=== PATIENT | female | born 1955 | race Caucasian/White ===

== ENCOUNTER 2025-04-15 06:55 | Outpatient (OUT) | payer MEDICARE, OTHER, SELFPAY ==
--- OUTSIDE RECORDS SUMMARY | 2025-04-15 07:00 | XMS_ITS | Clinical Summary ---
Author Organization [facility] Address [address] [place] [address] Care Team Providers Care Ultrasound Supervisor Name Role Phone Efraín Nadir GALVEZ Primary Care Provider [phone] Allergies Active AllergyReactionsCriticalityNoted DateCommentsErythromycin Base09/15/2018 Other reaction(s): Anaphylaxis Molds & Smuts12/14/20032668SjxoixxaidtHpqjxdfoXlcs13/20/2020 Medications MedicationSigDispense QuantityRefillsLast FilledStart DateEnd DateStatus irbesartan 150 MG tablet Take 1 tablet by mouth daily.08/29/2019Active hydroCHLOROthiazide 12.5 MG tablet Take 12.5 mg by mouth daily.08/31/2019Active pantoprazole Sodium 40 MG Pack Take 1 packet by mouth daily every morning.08/30/2019Active Fexofenadine 180 MG tablet Take 1 tablet by mouth as needed.Active guaiFENesin 600 MG Tab SR 12 HR tablet SR Take 1 tablet by mouth as needed.Active Diclofenac Sodium 1 % Gel gel Place 1 Application on skin 4 times daily as needed. 2 to 4 grams to knee(s) up to 4 times a day 1 Tube 10/06/2019Active Additional Information Patient not taking.Reported on 02/03/2020 dicyclomine 20 MG tablet Take 1 tablet by mouth daily.Active Lactobacillus-Inulin (CULTUREE HEALTH & WELLNESS PO) Take by mouth daily.Active Hydrocortisone (MONISTAT SOOTHING CARE ITCH EX) Apply topically as needed.Active ferrous sulfate 325 (65 Fe) MG tablet Take 325 mg by mouth 2 times daily. OTCActive aspirin EC [address] Take 1 table twice a day for 30days. This medication is for blood clot prevention. 60 tablet 02/28/2020Active celecoxib 200 MG capsule Take 1 capsule by mouth 2 times daily. 84 capsule 02/28/2020Active docusate 100 MG capsule Take 1 capsule by mouth 2 times daily. 60 capsule 02/28/2020Active Additional Information Patient not taking.Reported on 03/23/2020 therapeutic multivitamin-minerals tablet Take 1 tablet by mouth at bedtime. 30 tablet 02/28/2020Active oxyCODONE 5 MG tablet Indications:Acute postoperative pain of right kneeTake 1-2 tabs po q 4-6 hours PRN pain. Wean as tolerated. 30 tablet 02/28/2020Active ondansetron 4 MG tablet Take 1 tablet by mouth every 8 hours as needed for Nausea. 6 tablet 02/28/2020Active acetaminophen 325 MG tablet Take 2 tablets by mouth every 4 hours as needed for Mild Pain. 50 tablet Active Active Problems No known active problems Social History Tobacco UseTypesPacks/DayYears UsedDateSmoking Tobacco: NeverSmokeless Tobacco: Never Tobacco Cessation:Counseling Given: Not Answered Alcohol UseStandard Drinks/WeekCommentsYes0 (1 standard drink = 0.6 oz pure alcohol)very ocassionalCommentsNoSex and Gender InformationValueDate RecordedSex Assigned at BirthNot on fileLegal BaxLdqbjp74/13/2020 3:36 PM EDT Gender IdentityNot on fileSexual OrientationNot on file Last Filed Vital Signs Vital SignReadingTime TakenCommentsBlood Tlwzbwrp218/7410 3:29 PM EDT Ifywp5230 3:29 PM UXYIkiauibnymk50.9 ??C (96.6 ??F)08/07/2022 9:24 AM EDTRespiratory Efyy6360 3:29 PM EDTOxygen Wmhdvnptsm44%02/28/2020 3:29 PM EDTInhaled Oxygen Concentration--Hjblpx45 kg (205 lb)08/07/2022 9:24 AM EDT Qivsyd900 cm (5' 3 )08/07/2022 9:24 AM EDTBody Mass Index36.31008/07/2022 9:24 AM EDT Plan of Treatment Health MaintenanceDue DateLast DoneCommentsDEXA SCAN CULLVQJGTJ51/15/1956 HEPATITIS C VIRUS HSFWIBWFQ10/15/0400ODEUKFA87/15/1956TDAP (ADULT)1972 CERVICAL CANCER SCREENING DPTUFYLCSM75/15/1975LIPID ZNKKIEPST73/15/1994MAMMOGRAM SCREENING HIEVDFPTIO64/15/1994COLORECTAL CANCER SCREENING FDDPKGAMXU08/15/1999 ZOSTER (SHINGLES) VACCINE (1 of 2)07/03/20036449YXMBTYXXT21, 12/16/2019COVID-19 VACCINE ( season)/09/2021, 02/18/2021, 07/21/2020, Additional history existsINFLUENZA VACCINE (#1)/, 03/26/2021, 03/26/2020, Additional history existsRSV VACCINE (1 - 1-dose 75+ series)2028PNEUMOCOCCAL VACCINE RPORJSOuagsclkk51/08/2020, 03/18/2019HEP B VACCINEAged OutNo longer eligible based on patient's age to complete this topic Medical Devices ImplantedTypeAreaManufacturerDevice IdentifierShelf Expiration DateModel / Serial / LotAttune Tibial Base Porocoat Rotating Platform Size 5 Cementless Implanted:Qty: 1 on 02/28/2020 by Magnus Gibbons MD at [facility] Right: KneeDEPUY ORTHOPAEDICS INC10/16/2028/ 1506-11-005 / [id number] Femoral Porocoat Cruciate Retaining Size 6 Right Cementless Implanted:Qty: 1 on 02/28/2020 by Magnus Gibbons MD at [facility] Right: KneeDEPUY ORTHOPAEDICS INC04/17/2029/ 1504-01-206 / [id number] Tibial Insert Rotating Platform Crucite Retaining Size 6 5mm Aox Implanted:Qty: 1 on 02/28/2020 by Magnus Gibbons MD at [facility] Right: KneeDEPUY ORTHOPAED[employer]06/18/2024/ 1516-30-605 / [id number] Tibial Base Porocoat Rotating Platform Implanted:Qty: 1 on [facility]/11/[facility] [id number] / / [id number] Femoral Porocoat Cruciate Retaining Implanted:Qty: 1 on 01/11/2020 by Magnus Gibbons MD at [facility]: Knee [id number] / / [id number] Tibial Insert Rotating Platform Cruciate Retaining Implanted:Qty: 1 on 01/11/2020 by Magnus Gibbons MD at [facility]: Knee [id number] / / [id number] Procedures Procedure NamePriorityDate/TimeAssociated DiagnosisCommentsCOMPREHENSIVE METABOLIC MLGGRVggwpeq32/17/2020 3:57 PM EDT Arthralgia, unspecified joint from Last 3 Months or Most Recently Relevant to Health Maintenance Results * (ABNORMAL) COMPREHENSIVE METABOLIC PANEL (02/03/2020 3:57 PM EDT)Component ValueRef RangeTest MethodAnalysis TimePerformed AtPathologist SignatureGlucose 104(H)70 - 100 MG/DL[address] Comment: NORMAL <100 mg/dL PREDIABETES 101-126 mg/dL DIABETES 126 mg/dL or higher ZYW421 - 20 MG/DL[address] CREATININE SERUM0.980.52 - 1.04 MG/DL[address]SODIUM141136 - 145 MMOL/[address]Potassium4.03.5 - 5.1 MMOL/[address]CHLORIDE10598 - 107 MMOL/[address]CALCIUM9.68.4 - 10.2 MG/DL[address]PROTEIN, TOTAL7.46.3 - 8.2 GM/DL[address]Albumin4.23.5 - 5.0 G/dl02 [address]BILIRUBIN, TOTAL0.50.2 - 1.2 MG/DL[address]AST1715 - 41 IU/[address]ALKAL[address] DTAMVRVGLHG466(H)38 - 126 IU/[address]BON DIOXIDE (CO2)2622 - 30 MMOL/[address]/G Ratio1.31.3 - 2.[address] QTB3579 - 54 IU/[address] ESTIMATED GFR, NON AMER>60ml/min/1.73sq.[address]ESTIMATED GFR, >60ml/min/1.73sq.m [address]GFR COMMENTAverage GFR for 60-69 years old = 85.[address]Comment: Chronic Kidney disease, GFR = <60. Kidney failure, GFR = <15. The GFR estimate is not adjusted for extreme body surface area or acute process, nor has it been validated for women or ethnic groups other than and . Specimen (Source)Anatomical Location / LateralityCollection Method / Volume Collection TimeReceived UlqhRnqbb53/17/2020 3:57 PM EDT02/03/2020 4:06 PM EDT Narrative Authorizing ProviderResult TypeResult StatusChad Shakila BARRERA-CNPCHEMISTRY ORDERABLESFinal ResultPerforming OrganizationAddressCity/State/ZIP CodePhone Number [address] [address] from Last 3 Months or Most Recently Relevant to Health Maintenance Insurance Advance Directives For more information, please contact: [phone] (7:30 AM - 6PM [facility], Friday-Friday) * Full Code (Latest Code Status on File) Date ActivatedDate WemqjbmfnxwWfkzmbfv54/12/2020 9:06 AM * Full Code Date ActivatedDate InactivatedComments01/11/2020 11:18 AM02/28/2020 9:06 AM Care Teams Team MemberRelationshipSpecialtyStart DateEnd Date Nadir Kenny DO [address] [address] PCP - GeneralFamily Medicine10/06/19
--- OUTSIDE RECORDS SUMMARY | 2025-04-15 07:00 | XMS_ITS | Clinical Summary ---
Author Organization [facility] Address [address] [place] [address], [address] [place] [address] Care Team Providers Care Customer Liaison Name Role Phone Unavailable Primary Care Provider Unavailabl e Social History Tobacco UseTypesPacks/DayYears UsedDateSmoking Tobacco: Never Assessed CommentsUnknownSex and Gender InformationValueDate RecordedSex Assigned at Not on fileLegal TxxZeuknj36/12/2013 4:00 AM ESTGender IdentityNot on fileSexual OrientationNot on file Plan of Treatment Not on file
--- OUTSIDE RECORDS SUMMARY | 2025-04-15 07:00 | XMS_ITS | Clinical Summary ---
Author Organization [facility] Address [address] [place] [address] Phone Care Team Providers Care Firmware Engineer Name Role Phone Unavailable Primary Care Provider Unavailabl e Social History Tobacco UseTypesPacks/DayYears UsedDateSmoking Tobacco: Never Assessed CommentsUnknownSex and Gender InformationValueDate RecordedSex Assigned at Not on fileLegal FerFihovu41/25/2022 11:20 PM ESTGender IdentityNot on file Sexual OrientationNot on file Plan of Treatment Not on file
--- OUTSIDE RECORDS SUMMARY | 2025-04-15 07:00 | XMS_ITS | Clinical Summary ---
Author Organization [facility] Address [address] [place] [address] Care Team Providers Care Oil Refinery Process Technician Name Role Phone Nadir Kenny DO Unavailable [phone] Nadir Kenny DO Primary Care Provider [phone] Allergies Active AllergyReactionsCriticalityNoted DateCommentsDoxycyclineHives,Swelling, RwtszgrOyfq76/20/2020Erythromycin FsndRttkhwbzlvnHoaj19/30/2019 Other reaction(s): Anaphylaxis Molds & Smuts12/14/2003 Other Reaction(s): Other: See Comments Medications MedicationSigDispense QuantityRefillsLast FilledStart DateEnd DateStatus fluticasone (Flonase Allergy Relief) 50 MCG/ACT nasal spray Administer 1 spray into each nostril in the morning.Active sucralfate (Carafate) 1 g tablet Take 1 g by mouth in the morning and 1 g at noon and 1 g in the evening. 08/08/2023ctive hyoscyamine (Levsin) 0.[address] 0.125 mg under the tongue every 4 (four) hours if njeijc2008/08/2023ctive irbesartan (Avapro) 300 MG tablet Indications:Essential hypertensiontake 1 tablet orally once daily 90 tablet 5Active pantoprazole (ProtoNix) 40 MG EC tablet Take 40 mg by mouth in the morning. Take before meals. Do not crush, chew, or split.Active Lidocaine 4 % patch Apply 1 patch topically Daily as needed (pain)Active escitalopram (Lexapro) 5 MG tablet Indications:AnxietyTake 1 tablet (5 mg) by mouth Daily 30 tablet 508/25/2025Active rosuvastatin (Crestor) 5 MG tablet Indications:Mixed hyperlipidemia1 tablet po each evening 30 tablet 5Active fexofenadine (Rosie) 180 MG tablet Take 180 mg by mouth DailyActive Active Problems ProblemNoted DateDiagnosed DateElevated blood pressure qwjemzr3401/05/2025 Radiculopathy affecting upper icgcsxlua56/20/2025Sciatica of right side 11/10/2024bnormal resting ECG inqblyok29/07/2024iastolic heart failure 02/23/2024Elevated troponin I level02/23/2024Lower abdominal pain02/23/2024enal cyst02/23/2024Unstable uslttr3602/23/20243198Dnqxefe58/24/2024lass 2 obesity 06/11/2023Gout06/11/2023Morbid zbuhyeu8906/11/2023Neuroma of second interspace of left foot06/11/2023Osteoarthritis of knee06/11/2023Solitary pulmonary nodule 06/11/2023Tinnitus of both ears06/11/2023PPV (benign paroxysmal positional vertigo), left05/06/2023ersistent postural-perceptual dstievqpk40/30/2023 Migraine with aura and without status migrainosus, not orjfkrypypm86/30/2023 Balance uvfvwxrt82/28/4976Szdjihcuysn46/28/2023Obesity, Class II, BMI 35-39.9 04/01/2023hest pain03/31/2023Essential bozexluezhrn37/13/2023ERD (gastroesophageal reflux disease)03/31/20238905Ocudgrawuuzbvm48/13/2023IBS (irritable bowel syndrome)03/31/2023Stage 3a chronic kidney sjqyxwh3603/31/2023 Age-related nuclear cataract of both eyes11/22/2022ry eyes11/22/2022mblyopia of right eye11/22/2022lepharitis of upper and lower eyelids of both eyes 11/22/2022Other voice and resonance kgqtpunht53/22/2005 Encounters DateTypeDepartmentCare EdcjPdwihkptxkb91/20/2025 9:20 AM EDTOffice Visit [facility] [address] [place] [phone] Nadir Kenny DO Mixed hyperlipidemia (Primary Dx); Essential hypertension; Irritable bowel syndrome with both constipation and diarrhea; Pre-diabetes; Xlsmdtw8103/07/2025 9:00 AM EDTOffice Visit [facility] [address] [place] [phone] Tr Sibley, [place] Routine general medical examination at health care facility (Primary Dx); Encounter for screening mammogram for malignant neoplasm of breast; Postmenopausal; Encounter for /20/2025amboo flowsheet [facility] [address] [place] [phone] Tr [place], [place] 03/07/20257234Iiwhdr13/29/2025Patient Outreach [facility] [address] [place] [address] Renaldo, Inna, CABLE SYSTEMS INSTALLER from Last 3 Months Immunizations ImmunizationAdministration DatesNext DueInfluenza, Injectable, MDCK, preservative free03/18/2019Influenza, Madin [place] Canine Kidney, subunit, trivalent, injectable, contains annvzbjhwcuf10/08/2024Influenza, Seasonal, Quadrivalent, Gjvrvekbct41/10/2023,03/15/2022,03/26/2021,03/26/2020Influenza, injectable, MDCK, preservative free, ptmnzewiaxxw46/15/2018Influenza, injectable, quadrivalent, preservative free04/02/2021,03/03/2018,03/25/2017 Pneumococcal Conjugate PCV Pneumococcal Conjugate PCV Pneumococcal Polysaccharide CLTH327105/26/2019 Family History Medical HistoryRelationNameCommentsCancerBrother 2CraigMultiple sclerosisFather CancerMotherDorothyCataractsMotherDorothyHeart diseaseMotherDorothyCancerSister SueDiabetesSisterSueRelationNameStatusCommentsBrother 1DeceasedBrother 2Craig FatherDeceasedMotherDorothySisterSue Social History Tobacco UseTypesPacks/DayYears UsedDateSmoking Tobacco: NeverPassive Smoke Exposure: NeverSmokeless Tobacco: Never Tobacco Cessation:Counseling Given: No Alcohol UseStandard Drinks/WeekCommentsNever0 (1 standard drink = 0.6 oz pure alcohol)Humiliation, Afraid, Rape, and Kick questionnaireAnswerDate Recorded Within the last year, have you been afraid of your partner or ex-partner?No 04/14/2023Within the last year, have you been humiliated or emotionally abused in other ways by your partner or ex-partner?No04/14/2023Within the last year, have you been kicked, hit, slapped, or otherwise physically hurt by your partner or ex-partner?No04/14/2023Within the last year, have you been raped or forced to have any kind of sexual activity by your partner or ex-partner?No04/14/2023 Social Connection and Isolation PanelAnswerDate RecordedIn a typical week, how many times do you talk on the phone with family, friends, or neighbors?More than three times a week04/14/2023How often do you get together with friends or relatives?Twice a week04/14/2023How often do you attend episcopal or judaism services?More than 4 times per year04/14/2023o you belong to any clubs or organizations such as episcopal groups, unions, fraternal or athletic groups, or school groups?Yes04/14/2023How often do you attend meetings of the clubs or organizations you belong to?More than 4 times per year04/14/2023re you , , , , never , or living with a partner? 04/14/2023UDIT-CAnswerDate RecordedQ1: How often do you have a drink containing alcohol?Never04/14/2023Q2: How many drinks containing alcohol do you have on a typical day when you are drinking?Patient does not drink04/14/2023Q3: How often do you have six or more drinks on one occasion?Never04/14/2023Overall Financial Resource Strain (CARDIA)AnswerDate RecordedHow hard is it for you to pay for the very basics like food, housing, medical care, and heating?Not very hard 04/14/2023HQ-2AnswerDate RecordedPatient Health Questionnaire-2 Score0 03/07/2025[facility] [place] [facility] - Occupational Stress QuestionnaireAnswerDate RecordedDo you feel stress - tense, restless, nervous, or anxious, or unable to sleep at night because yourmind is troubled all the time - these days?Only a ccindo4804/14/2023Exercise Vital SignAnswerDate Recorded On average, how many days per week do you engage in moderate to strenuous exercise (like a brisk walk)?2 days04/14/2023On average, how many minutes do you engage in exercise at this level?20 min04/14/2023Hunger Vital SignAnswerDate RecordedWithin the past 12 months, you worried that your food would run out before you got the money to buymore.Never true04/14/2023Within the past 12 months, the food you bought just didn't last and you didn't have money to get more.Never true04/14/2023RAPARE - TransportationAnswerDate RecordedIn the past 12 months, has lack of transportation kept you from medical appointments or from getting medications?No04/14/2023In the past 12 months, has lack of transportation kept you from meetings, work, or from getting things needed for daily living?No04/14/2023Housing Stability Vital SignAnswerDate RecordedIn the last 12 months, was there a time when you were not able to pay the mortgage or rent on time?No04/14/2023In the last 12 months, how many places have you lived?1 04/14/2023In the last 12 months, was there a time when you did not have a steady place to sleep or slept in [facility] (including now)?No04/14/2023Comments UnknownSex and Gender InformationValueDate RecordedSex Assigned at BirthNot on fileLegal JeuXrurkm60/01/2023 8:35 PM EDTGender IdentityNot on fileSexual OrientationNot on file Last Filed Vital Signs Vital SignReadingTime TakenCommentsBlood Jgomrtey959/7610 9:04 AM EDT Dljhq402003/07/2025 9:04 AM LQYTjgenhmjumh25.7 ??C (98.1 ??F)03/07/2025 9:04 AM EDTRespiratory Rate--Oxygen Wflavfhvns00%03/07/2025 9:04 AM EDTInhaled Oxygen Concentration--Immmjf520 kg (224 lb)03/07/2025 9:04 AM SMLOgouap481 cm (5' 3 ) 03/07/2025 9:04 AM EDTBody Mass Index39.6803/07/2025 9:04 AM EDT Plan of Treatment Health MaintenanceDue DateLast DoneCommentsCT Sainyudcsosu45/15/1956FIT-DNA 1955FIT1955FOBT1955 6792Xblmnfgcxkkgo67/15/0939Quddbqeff66/16/2022 02/01/2021, 08/26/2013, 08/26/2013, Additional history existsCOVID-19 Vaccine ( season)5002/13/2024, 02/25/2023, 02/18/2021, Additional history existsInfluenza Vaccine (#1)/12/2023, 02/25/2023, 03/15/2022, Additional history kywqsgHnjperwmpbp63, 08/17/2013, 08/17/2013Colorectal Cancer Czzdcjlsp65/29/2030Pneumococcal Vaccine: 65+ KnzxaHquirirwd92/20/2025, 03/26/2020, 03/18/2019 Procedures Procedure NamePriorityDate/TimeAssociated DiagnosisCommentsHEMOGLOBIN A1C WITH ZTYWpiigaj54/14/2025 9:15 AM EDT Pre-diabetes LIPID IGCLBFzaitjv25/14/2025 9:15 AM EDT General medical exam COMPREHENSIVE METABOLIC IIKUMQqirwxl65/14/2025 9:15 AM EDT General medical exam CBC (INCLUDES DIFF/PLT)Xsoezrc8403/01/2025 9:15 AM EDT General medical exam BI MAMMOGRAM SCREENING QQSSRMYXXCbiuzus16/16/2021 12:00 PM EDT HM ESZOHFGKRXZBoefrkw98/29/2020 1:09 PM EDTfrom Last 3 Months or Most Recently Relevant to Health Maintenance Results * Hemoglobin a1c with eag (03/01/2025 9:15 AM EDT)ComponentValueRef RangeTest MethodAnalysis TimePerformed AtPathologist SyjunygwnNsjW5P9.34.8 - 5.6 % [facility]ABCORPComment: ? Prediabetes: 5.7 - 6.4 Diabetes: >6.4 Glycemic control for adults with diabetes: <7.0 Est Avg Gluc yLZ213im/dLLABCORPSpecimen (Source)Anatomical Location / Laterality Collection Method / VolumeCollection TimeReceived TimeBloodVenous blood specimen / Ncootbw1203/01/2025 9:15 AM EDT1 Narrative [facility] - 03/02/2025 9:07 AM EDT Performed at: 02 - [facility] ??[id number] Welder Assistant: Chito Palacios PhD, Phone: ??[phone] Authorizing ProviderResult TypeResult StatusPaehsan Kenny DOL BLOOD ORDERABLES Final ResultPerforming OrganizationAddressCity/State/ZIP CodePhone Number [facility] * CBC and differential (03/01/2025 9:15 AM EDT)ComponentValueRef RangeTest MethodAnalysis TimePerformed AtPathologist SignatureWBC5.73.4 - 10.8 x10E3/uL LABCORPRBC4.383.77 - 5.28 x10E6/pKCTQCXWUMdh88.711.1 - 15.9 g/bHAXASGTEFzm82.3 34.0 - 46.6 %CLRVVHASSS6297 - 97 hWEUABRQBNSA74.026.6 - 33.0 ejAOWLFCGLMYH23.3 31.5 - 35.7 g/vMFSOIUKXNDE20.211.7 - 15.4 %WBTXUIFRdssjtrnl311809 - 450 x10E3/wVJVYHMRCWouvcvrazwx36Wrz Estab. %LXMMNEYLwmgow37Iit Estab. %[facility] Xnueteuzr56Ert Estab. %YCPEILHUvr5Jht Estab. %VASGRVETikyd0Gls Estab. %[facility] Neutrophils Abs3.11.4 - 7.0 x10E3/uLLABCORPLymphs Abs1.90.7 - 3.1 x10E3/uL [facility]ABCORPMonocytesAbs0.60.1 - 0.9 x10E3/uLLABCORPEos Abs0.10.0 - 0.4 x10E3/uL [facility]ABC[facility]PBaso Abs0.10.0 - 0.2 x10E3/uLLABCORPImmature Cjsrnvzwoevf2Xes Estab. % LABCORPImmature Grans Abs0.00.0 - 0.1 x10E3/uLLABCORPSpecimen (Source) Anatomical Location / LateralityCollection Method / VolumeCollection Time Received TimeBloodVenous blood specimen / Xsloqrl2603/01/2025 9:15 AM EDT 03/01/2025 Narrative [facility] - 03/02/2025 9:07 AM EDT Performed at: 01 - [place] [address] [facility], [address], [place], [place] ??[id number] Welder Assistant: Ryder Major MD, Phone: ??[phone] Authorizing ProviderResult TypeResult StatusPaul Domenic Kenny DOL BLOOD ORDERABLES Final ResultPerforming OrganizationAddressCity/State/ZIP CodePhone Number [facility] * Lipid panel (03/01/2025 9:15 AM EDT)ComponentValueRef RangeTest MethodAnalysis TimePerformed AtPathologist SignatureCholesterol, Btqzd145512 - 199 mg/dL HBOTSGIHqhtvbxyitbua6587 - 149 mg/dLLABCORPHDL Puqbulfoozu98>39 mg/dLLABCORP VLDL Cholesterol Cso886 - 40 mg/dLLABCORPLDL Chol Calc (NIH)900 - 99 mg/dL [facility]PSpecimen (Source)Anatomical Location / LateralityCollection Method / VolumeCollection TimeReceived TimeBloodVenous blood specimen / Unknown 03/01/2025 9:15 AM EDT1 Narrative [facility] - 03/02/2025 9:07 AM EDT Performed at: 02 - [facility], [place], [place] ??[id number] Welder Assistant: Chito Palacios PhD, Phone: ??[phone] Authorizing ProviderResult TypeResult StatusPaul Domenic Vazquezer FELIPE BLOOD ORDERABLES Final ResultPerforming OrganizationAddressCity/State/ZIP CodePhone Number [facility] * (ABNORMAL) Comprehensive metabolic panel (03/01/2025 9:15 AM EDT)Component ValueRef RangeTest MethodAnalysis TimePerformed AtPathologist SignatureGlucose 9670 - 99 mg/xYXAWYUUFAND419 - 27 mg/dLLABCORPCreat1.33(H)0.57 - 1.00 mg/dL FGBKAQXBRWO18(L)>59 mL/min/1.73LABCORPBUN/Creat Tkuyr7315 - 67NJTHWKJRfkeeu683 134 - 144 mmol/[facility]ABCORPPotassium4.23.5 - 5.2 mmol/NIQKCCVXMcpmnzlt192(H)96 - 106 mmol/[facility]ABCORPCarbon Dervqpn4990 - 29 mmol/[facility]ABCORPCalcium9.78.7 - 10.3 mg/dLLABCORPProtein Total6.76.0 - 8.5 g/dLLABCORPAlbumin4.33.8 - 4.8 g/dL [facility]PGlobulin Total2.41.5 - 4.5 g/dLLABCORPBili Total0.80.0 - 1.2 mg/dL [facility]ABCORPAlk Eybzvxpdcvi97149 - 135 IU/TTUBWELOXIS3688 - 59 IU/RBHXBJTQACB372 - 35 IU/[facility]PSpecimen (Source)Anatomical Location / LateralityCollection Method / VolumeCollection TimeReceived TimeBloodVenous blood specimen / Caqlvtk1503/01/2025 9:15 AM EDT1 Narrative [facility] - 03/02/2025 9:07 AM EDT Performed at: 01 - [facility] [address], [place], [place] ??[id number] Welder Assistant: Ryder Major MD, Phone: ??[phone] Authorizing ProviderResult TypeResult StatusPaul J Efraín DOLAB BLOOD ORDERABLES Final ResultPerforming OrganizationAddressCity/State/ZIP CodePhone Number [facility] * Bilateral screening mammogram (02/01/2021 12:00 PM EDT)Anatomical Region LateralityModalityBreastBilateralMammographySpecimen (Source)Anatomical Location / LateralityCollection Method / VolumeCollection TimeReceived Time Narrative 02/01/2021 12:00 PM EDT PERFORMED AT [facility] LOCATION:[id number] Procedure Note CONVERSION, GENERIC - 11/22/2022 PERFORMED AT [facility] LOCATION:[id number] Authorizing ProviderResult TypeResult Sara Kenny DOIMG BI PROCEDURES Final Result * Hm Colonoscopy (12/15/2019 1:09 PM EDT)Anatomical RegionLateralityModality Other Narrative Authorizing ProviderResult TypeResult Sara Kenny DOHEALTH MAINTENANCE Final Result from Last 3 Months or Most Recently Relevant to Health Maintenance Insurance Care Teams Team MemberRelationshipSpecialtyStart DateEnd Nadir Kenny DO [address] [place] [address] PCP - [facility]10/10/22 Nadir Kenny, DO [address] [place] [address] PCP - [facility]09/24/22
--- OUTSIDE RECORDS SUMMARY | 2025-04-15 07:00 | XMS_ITS | Clinical Summary ---
Author Organization [facility] Address [address] [place] [address] Care Team Providers Care Public Address Servicer Name Role Phone Nadir Kenny DO Primary Care Provider [phone] Allergies Active AllergyReactionsCriticalityNoted DateCommentsDoxycyclineSwellingHigh 10/06/2019Erythromycin UsfrSqpsonixshj05/30/2019 Other reaction(s): Anaphylaxis Other reaction(s): Anaphylaxis MoldOther: See Aognzdzd76/28/5586Dwipzfmlhunoh73/28/2004 Medications MedicationSigDispense QuantityRefillsLast FilledStart DateEnd DateStatus multivitamin,ew-fxwn-szefrcan (THERAGRAN M) tab Take 1 tablet by mouth daily at bedtime.02/28/2020Active irbesartan (AVAPRO) 300 mg tablet Take 300 mg by mouth daily at bedtime.03/15/2023ctive fexofenadine (BERNY) 180 mg tablet Take 1 tablet by mouth as needed.Active LACTOBACILLUS ACIDOPHILUS ORAL Take 1 tablet by mouth once daily.Active fluticasone propionate (FLONASE NASAL) Use 2 Sprays in the nose as needed.Active pantoprazole DR (PROTONIX) 40 mg tablet Take 1 tablet by mouth once daily. 90 tablet ctive sucralfate (CARAFATE) 1 gram tablet Take 1 tablet by mouth three times a day. 90 tablet 5Active Active Problems ProblemNoted DateDiagnosed DateObesity, Class II, BMI 35-39.91/hest pain03/31/2023ERD (gastroesophageal reflux disease)03/31/2023HTN (hypertension) 03/31/2023HLD (hyperlipidemia)03/31/2023IBS (irritable bowel syndrome)03/31/2023 Stage 3a chronic kidney lrbzrmt7403/31/2023Other voice and resonance disorders 08/07/2004 Resolved Problems ProblemNoted DateDiagnosed DateResolved DateMorbid vcqvddu54/ Immunizations ImmunizationAdministration DatesNext Dueinfluenza (IIV4) vaccine, age 6 mo - 64 yr, quadrivalent, PF (AFLURIA, FLUARIX, FLULAVAL, FLUZONE)03/25/2017influenza (aIIV4) vaccine, age 65+ yr, quadrivalent, PF (FLUAD QUAD)02/25/2023,03/15/2022, 03/26/2021,03/26/2020influenza (ccIIV3) vaccine, age 6+ mo, trivalent, PF (FLUCELVAX)03/18/2019influenza (ccIIV4) vaccine, age 6+ mo, quadrivalent, PF (FLUCELVAX)03/02/2018pneumococcal conjugate (PCV13) vaccine, 13 valent (PREVNAR 13)03/18/2019pneumococcal polysaccharide (PPV23) vaccine, 23 valent (PNEUMOVAX 23)03/26/2020 Family History Medical HistoryRelationCommentsHeart AttackBrotherRelationStatusCommentsBrother Social History Tobacco UseTypesPacks/DayYears UsedDateSmoking Tobacco: NeverSmokeless Tobacco: Never Tobacco Cessation:Counseling Given: Not Answered Alcohol UseStandard Drinks/WeekCommentsNot Currently0 (1 standard drink = 0.6 oz pure alcohol)sociallyHunger Vital SignAnswerDate RecordedWithin the past 12 months, you worried that your food would run out before you got the money to buy more.Never true03/31/2023Within the past 12 months, the food you bought just didn't last and you didn't have money to get more.Never true03/31/2023RAPARE - TransportationAnswerDate RecordedIn the past 12 months, has lack of transportation kept you from medical appointments or from getting medications?No 03/31/2023In the past 12 months, has lack of transportation kept you from meetings, work, or from getting things needed for daily living?No03/31/2023 Housing Stability Vital SignAnswerDate RecordedIn the last 12 months, was there a time when you were not able to pay the mortgage or rent on time?No03/31/2023 Number of Places Lived in the Last YearNot on file03/31/2023In the last 12 months, was there a time when you did not have a steady place to sleep or slept in [facility] (including now)?No03/31/2023Housing Stability Vital SignAnswerDate RecordedIn the last 12 months, was there a time when you were not able to pay the mortgage or rent on time?No03/31/2023Number of Times Moved in the Last Year Not on file03/31/2023Homeless in the Last YearNot on file03/31/2023rea Deprivation IndexAnswerDate RecordedNational Score (1-100), lower number is lower fcxw910404/30/2024State Score (1-10), lower number is lower rhip12407/01/2023 Data from: https://www.neighborhoodatlas.medicine.[facility].edu/. Last address used for [address]CommentsNoSex and Gender InformationValueDate RecordedSex Assigned at BirthNot on fileLegal SexFemale 04/19/2012 9:00 AM ESTGender IdentityNot on fileSexual OrientationNot on file Last Filed Vital Signs Vital SignReadingTime TakenCommentsBlood Ifykoufq003/8504/30/2024 12:15 PM EST Zkvbn398204/30/2024 12:15 PM XVNMrbfsqsvptz08.6 ??C (97.9 ??F)04/30/2024 12:15 PM ESTRespiratory Ssho9412 7:36 AM ESTOxygen Rxpzvdfgql676%04/30/2024 12:15 PM ESTInhaled Oxygen Concentration--Onhfor73.5 kg (219 lb 5.7 oz)04/30/2024 12:15 PM HLROevwua194 cm (5' 3 )12/16/2023 8:31 AM EDTBody Mass Index38.86 12/16/2023 8:31 AM EDT Plan of Treatment DateTypeDepartmentCare Team (Latest Contact Info)Kqvygahfrka57/19/2025 8:00 AM ESTOffice Visit Gastroenterology [address] [place] [address] Satn Girard Jr., DO [address] [place] [address] 1 year Follow-upHealth MaintenanceDue DateLast DoneCommentsAnnual PCP Team Chronic Disease Visit1971Anxiety Qqrtzbhdk12/15/1972Depression Screening 1971Hepatitis C Mwfgzmhnq62/15/1972DTaP,Tdap,Td Vaccine (1 - Tdap) 1972CT Egwqzdayvvyb53/15/1999Cologuard (FIT-DNA)1998Colonoscopy 1998Colorectal Cancer Vsdhwvtqu31/15/1999Fecal Occult Blood1998 Xhdtvtyuyjpkh37/15/1999Shingrix Vaccine (1 of 2)2003Medicare Annual Wellness Visit06/19/2018Bone Density Getgehwom27/15/2019Mammogram Screening , 02/01/2021, 08/26/2013Hemoglobin/Csebgrncwr70/15/2024 04/02/2023, 03/31/2023, 02/03/2020, Additional history existsSerum Creatinine , 04/01/2023, 03/31/2023, Additional history existsAdvance Directive Pbbqdxxswt63/01/2025Covid-19 Vaccine ( season)2025 02/25/2023, 09/25/2022, 02/20/2022, Additional history existsInfluenza Vaccine (#1)510/12/2023, 02/25/2023, 03/15/2022, Additional history exists Diabetes Ghqhpmbbx91, 04/02/2023, 04/01/2023, Additional history existsLipid Sqllkglxs50/13/69121805/31/2022RSV Vaccine (1 - 1-dose 75+ series)2028Pneumococcal Vaccine: 50+Mrlwhjqst27/08/2020, 03/18/2019 Procedures Procedure NamePriorityDate/TimeAssociated DiagnosisCommentsCBC AUTO WO DIFFSTAT 04/02/2023 8:26 AM EST BASIC METABOLIC MXCWYKQFY29/15/2023 8:26 AM EST LIPID PANEL, FASTINGAdd-on03/31/2023 9:22 AM EST from Last 3 Months or Most Recently Relevant to Health Maintenance Results * CBC (04/02/2023 8:26 AM EST)ComponentValueRef RangeTest MethodAnalysis Time Performed AtPathologist SignatureWBC5.733.70 - 11.00 k/uL04/02/2023 8:37 AM [facility] LABORATORYRBC4.323.90 - 5.20 m/uL04/02/2023 8:37 AM [facility] CFEBGYZPNTPdkccucmiv38.311.5 - 15.5 g/dL04/02/2023 8:37 AM [facility] XGTTWWTIIMDinryejutv54.036.0 - 46.0 %04/02/2023 8:37 AM [facility] OXGMRFQDPFZFM04.380.0 - 100.0 fL04/02/2023 8:37 AM [facility] AGOJUJOFBTOUB10.526.0 - 34.0 pg04/02/2023 8:37 AM [facility] MCHC31.530.5 - 36.0 g/dL04/02/2023 8:37 AM [facility] LABORATORYRDW-CV 12.411.5 - 15.0 %04/02/2023 8:37 AM [facility] LABORATORYPlatelet Count 248587 - 400 k/uL04/02/2023 8:37 AM [facility] ENIZDZFCHBWKF01.79.0 - 12.7 fL04/02/2023 8:37 AM [facility] LABORATORYAbsolute nRBC<0.01<0.01 k/uL04/02/2023 8:37 AM [facility] LABORATORYSpecimen (Source)Anatomical Location / LateralityCollection Method / VolumeCollection TimeReceived Time BloodBLOOD SPECIMEN / UnknownVenipuncture / Xusjlol9804/02/2023 8:26 AM EST 04/02/2023 8:30 AM EST Narrative Authorizing ProviderResult TypeResult StatusTing Melo MDLABORATORYFinal Result Performing OrganizationAddressCity/State/ZIP CodePhone Number [facility] [address] [facility] [place] [place] [address], * (ABNORMAL) BASIC METABOLIC PNL (04/02/2023 8:26 AM EST)ComponentValueRef Range Test MethodAnalysis TimePerformed AtPathologist WruzecwksRcyfhkm788(H)74 - 99 mg/dL04/02/2023 9:01 AM [facility] LABORATORYComment: The Canadian Diabetes Association (ADA) provides guidance for cutoff values for fasting glucose andrandom glucose. The ADA defines fasting as no caloric intake for at least 8 hours. Fasting plasma glucose results between 100 to 125 mg/dL indicate increased risk for diabetes (prediabetes). Fasting plasma glucose results greater than or equal to 126 mg/dL meet the criteria for diagnosis of diabetes. In the absence of unequivocal hyperglycemia, results should be confirmed by repeat testing. In a patient with classic symptoms of hyperglycemia or hyperglycemic crisis, random plasma glucose results greater than or equal to 200 mg/dL meet the criteria for diagnosis of diabetes. Reference: Standards of Medical Care in Diabetes 2016, Canadian Diabetes Association. Diabetes Care. 2016.39(Suppl 1). IKX416 - 21 mg/dL04/02/2023 9:01 AM [facility] LABORATORYCreatinine1.28(H) 0.58 - 0.96 mg/dL04/02/2023 9:01 AM [facility] ZQIYMYYMQNPnfghu826317 - 144 mmol/L106/02/2022 9:01 AM [facility] LABORATORYPotassium3.5(L)3.7 - 5.1 mmol/L106/02/2022 9:01 AM [facility] GYUGBVVPBQZteolvye46458 - 105 mmol/L 04/02/2023 9:01 AM [facility] BKTIDIOBAWSV69340 - 30 mmol/L11/ 9:01 AM [facility] LABORATORYAnion Skn316 - 18 mmol/L106/02/2022 9:01 AM [facility] LABORATORYCalcium, Total9.18.5 - 10.2 mg/dL04/02/2023 9:01 AM [facility] LABORATORYEstimated Glomerular Filtration Rate45(L)>=60 mL/min/1.73m 04/02/2023 9:01 AM [facility] LABORATORYComment:Estimated Glomerular Filtration Rate (eGFR) is calculated using the 2020 CKD-EPI creatinine equation. This equation utilizes serum creatinine, sex, and age as parameters. The creatinine assay has traceable calibration to isotope dilution-mass spectrometry. Refer to KDIGO guidelines for clinical interpretation. In patients with unstable renal function, e.g. those with acute kidney injury, the eGFRmay not accurately reflect actual GFR.Specimen (Source)Anatomical Location / LateralityCollection Method / VolumeCollection TimeReceived TimeBloodBLOOD SPECIMEN / UnknownVenipuncture / Nnnmrwj3304/02/2023 8:26 AM EST04/02/2023 8:29 AM EST Narrative Authorizing ProviderResult TypeResult StatusTing Melo MDLABORATORYFinal Result Performing OrganizationAddressCity/State/ZIP CodePhone Number [facility] [address] [facility] [place] [address], * (ABNORMAL) LIPID PANEL BASIC (03/31/2023 9:22 AM EST)ComponentValueRef Range Test MethodAnalysis TimePerformed AtPathologist SignatureCholesterol, Rmmdg960 (H)<200 mg/dL03/31/2023 1:55 PM [facility] LABORATORYComment: <200 mg/dL, Desirable 200-239 mg/dL, Borderline high >239 mg/dL, High Tqjywvxenbdp306<150 mg/dL03/31/2023 1:55 PM [facility] LABORATORYComment: <150 mg/dL, Normal 150-199 mg/dL, Borderline high 200-499 mg/dL, High >499 mg/dL, Very high HDL Cvaikdndbdb49>39 mg/dL03/31/2023 1:55 PM [facility] LABORATORYComment: 40-59 mg/dL, Acceptable >59 mg/dL, High: Negative risk factor for coronary heart disease <40 mg/dL, Low: Positive risk factor for coronary heart disease Non HDL Bfdsiudxniv240(H)<130 mg/dL03/31/2023 1:55 PM [facility] LABORATORYComment: <130 mg/dL, Optimal 130-159 mg/dL, Near optimal/above optimal 160-189 mg/dL, Borderline high 190-219 mg/dL, High >219 mg/dL, Very high Secondary prevention optimal non HDL Cholesterol levels are recommended to be <100 mg/dL Fasting Time03/31/2023 1:55 PM [facility] LABORATORYComment:UnknownVLDL Bwbxmwofdqo95<30 mg/dL03/31/2023 1:55 PM [facility] LABORATORYTC:HDL Ratio 5.41(H)<5.10105/31/2022 1:55 PM [facility] LABORATORYLDL Cholesterol, Xzrgjfoifc096(H)<100 mg/dL03/31/2023 1:55 PM [facility] LABORATORYComment: <100 mg/dL, Optimal 100-129 mg/dL, Near optimal/above optimal 130-159 mg/dL, Borderline high 160-189 mg/dL, High >189 mg/dL, Very high Secondary prevention optimal LDL Cholesterol levels are recommended to be < 70 mg/dL LDL:HDL Ratio3.85(H)<2.5403/31/2023 1:55 PM [facility] LABORATORYComment: Reference: 1. National Cholesterol Education Program ATP III Guideline At-A-Glance Quick Desk Reference: National Heart, Lung, and Blood [place]. National Institutes of Health. 2001: NIH Publication No. 01-3305. 2. An International Atherosclerosis Society position paper: global recommendations for the management of dyslipidemia: executive summary, Atherosclerosis. 2014: 232(2):410-413. Specimen (Source)Anatomical Location / LateralityCollection Method / Volume Collection TimeReceived TimeBloodBLOOD SPECIMEN / UnknownVenipuncture / Unknown 03/31/2023 9:22 AM EST03/31/2023 9:26 AM EST Narrative Authorizing ProviderResult TypeResult StatusCrystal Reynaldo Chauhan APRN.CNPLABORATORY Final ResultPerforming OrganizationAddressCity/State/ZIP CodePhone Number [facility] [phone] [facility] [place] [address], [place] from Last 3 Months or Most Recently Relevant to Health Maintenance Insurance Advance Directives * Full Code (Latest Code Status on File) Date ActivatedDate FjxticpzuyoGfjkqtyw94/13/2023 12:50 PM04/02/2023 1:09 PM QuestionAnswerCommentsFull Code Order Discussed With:* Patient Care Teams Team MemberRelationshipSpecialtyStart DateEnd Date Nadir Kenny DO [address] [place] [address] PCP - GeneralFamily Ghqxyrbt97/13/23
--- NOTE | 2025-04-15 07:22 | MM_ITS ---
Patient Name: EZEQUIEL NUÑEZ MR#: [id number] : 1955 Exam Date: 04/15/2025 Ordering Doctor: DR ERNST MAC D.O. RADIOLOGY REPORT PROCEDURE: MM TOMOSYNTHESIS SCREENING BI COMPARISON: MG MAMM SCREEN 3D ENRIQUE CAD, 02/01/2021. MG MAMM SCREEN ENRIQUE W CAD, 08/26/2013. MG MAMM SCREEN ENRIQUE W CAD, 09/26/2010. INDICATIONS: Breast cancer screening Calculator Name NCI Breast Cancer Risk Assessment Tool 5 Year Breast Cancer Risk 3.00% Lifetime Breast Cancer Risk 8.30% Personal Breast Cancer No Personal Ovarian Cancer No Treatments None Family Cancers Sister with breast cancer at age 72; Grandmother-paternal with breast cancer at age 55; Brother with prostate cancer at age 75; Brother with prostate cancer at age 50. LOCATION: [facility] BREAST COMPOSITION: There are scattered areas of fibroglandular density. FINDINGS: DIAGNOSTIC CATEGORY 0--INCOMPLETE: NEED ADDITIONAL IMAGING EVALUATION. RIGHT BREAST: Focal asymmetry central/inferior aspect of the right breast, middle depth. LEFT BREAST: No significant suspicious finding. RECOMMENDATIONS: ADDITIONAL MAMMOGRAPHIC VIEWS REQUIRED: RIGHT BREAST - spot-compression/true lateral views, possible ultrasound recommended. Dictated by: Rey Mitchell DO on 04/15/2025 at 08:55 Approved by: Rey Mitchell DO on 04/15/2025 at 08:58
== END 2025-04-15 06:56 | disposition home or self-care (01) ==
PROVIDERS: PCP Family Medicine; Visit Provider Family Medicine
DX: Z12.31 Encounter for screening mammogram for malignant neoplasm of breast (principal); Z80.3 Family history of malignant neoplasm of breast; Z80.42 Family history of malignant neoplasm of prostate
CPT/HCPCS: 77063; 77067

== ENCOUNTER 2025-05-10 09:38 | Outpatient (OUT) | payer MEDICARE, OTHER, SELFPAY ==
--- OUTSIDE RECORDS SUMMARY | 2025-05-06 08:00 | XMS_ITS | Encounter Summary ---
Author Organization [facility] Address [address] [place] [address] Care Team Providers Care Banjo Repairer Name Role Phone Efraín Nadir Sheth DO Primary Care Provider [phone] Source Comments In the event this information is protected by the Federal Confidentiality of Alcohol and Drug AbusePatient Records regulations: The Federal rules restrict any use of the information to criminally investigate or prosecute any alcohol or drug abuse patient.[facility] Encounter Details DateTypeDepartmentCare Team (Latest Contact Info)Sgcicqbjiyf29/19/2025 8:00 AM ESTOffice Visit Gastroenterology [address] [facility] [place] [address] Stan Girard Jr., DO [address] [place] [phone] Irritable bowel syndrome with constipation (Primary Dx); LUQ pain; Gastroesophageal reflux disease without esophagitis; Esophageal spasm; Hemorrhoids, unspecified hemorrhoid type Social History Tobacco UseTypesPacks/DayYears UsedDateSmoking Tobacco: NeverSmokeless [...] steady place to sleep or slept in [facility] (including now)?No03/31/2023Housing Stability Vital SignAnswerDate RecordedIn the last 12 months, was there a time when you were not able to pay the mortgage or rent on time?No03/31/2023Number of Times Moved in the Last Year Not on file03/31/2023Homeless in the Last YearNot on file03/31/2023rea Deprivation IndexAnswerDate RecordedNational Score (1-100), lower number is lower tsse105304/30/2024State Score (1-10), lower number is lower rwgd36607/01/2023 Data from: https://www.neighborhoodatlas.medicine.[facility].edu/. Last address used for [address]CommentsNoSex and Gender InformationValueDate RecordedSex Assigned at BirthNot on fileLegal SexFemale 04/19/2012 9:00 AM ESTGender IdentityNot on fileSexual OrientationNot on file documented as of this encounter Last Filed Vital Signs Vital SignReadingTime TakenCommentsBlood Pressure--Pulse--Temperature-- Respiratory Rate--Oxygen Saturation--Inhaled Oxygen Concentration--Azowip957.8 kg (222 lb 3.6 oz)05/06/2025 7:51 AM ESTHeight--Body Mass Index39.3707 8:31 AM EDTdocumented in this encounter Functional Status * Are you deaf or do you have serious difficulty hearing?AnswerDate of IrdsqemihoJdumdqZo82/15/2023 9:38 AM Victor Manuel Whitlock RN * Are you blind or do you have serious difficulty seeing, even when wearing glasses?AnswerDate of LokcziilneHoyyklAl41/15/2023 9:38 AM Victor Manuel Whitlock RN * Do you have serious difficulty walking or climbing stairs?AnswerDate of UqanfmufaqJdjijfRt64/15/2023 9:38 AM Victor Manuel Whitlock RN * Do you have difficulty dressing or bathing?AnswerDate of AssessmentMcKenzie Memorial Hospital 04/02/2023 9:38 AM Victor Manuel Whitlock RN * Because of a physical, mental, or emotional condition, do you have difficulty doing errands alone such as visiting a doctor's office or shopping?AnswerDate of ZfgwmvsvffPtxmtkAa26/15/2023 9:38 AM Victor Manuel Whitlock RN documented as of this encounter Mental Status * Because of a physical, mental, or emotional condition, do you have serious difficulty concentrating, remembering, or making decisions?AnswerEntry Date YlfgiwRo34/15/2023 9:38 AM Victor Manuel Whitlock RN documented in this encounter Patient Instructions * Patient Instructions* Stan Girard Jr., DO - 05/06/2025 8:02 AM EST Increase pantoprazole to twice daily Stop sucralfate Consider fiber supplementation with Citrucel documented in this encounter Progress Notes * Stan Girard Jr., DO - 05/06/2025 8:00 AM EST Images from the original note were not included. CC: LUQ pain, constipation, GERD HPI: Gemma Alonso, 69 year old female, with hyperlipidemia, GERD, and chronic constipation, presenting with recent changes in bowel habits and increased perirectal discomfort. She reports a change in her bowel pattern since starting rosuvastatin, with stools now described assmaller in volume, softer, and more difficult to clean. She often feels an incomplete sense of evacuation and has a variable bowel pattern, with some days having a single morning bowel movement and other days experiencing delayed or itxjz-uoish-oay stools. She denies straining but notes a sense of urgency and apprehension about being away from home due to unpredictable bowel habits. She has been taking magnesium at night and has tried eating half a dried prune daily, but has not noticed improvement. She has not tried fiber supplements. She also reports intermittent discomfort LUQ under her right rib, which she has experienced before but notes has recurred since starting rosuvastatin. This discomfort improves after bowel movements. She is currently taking pantoprazole 40 mg daily in the morning and sucralfate, which she believes may be contributing to her constipation. She is also taking a blood pressure medication at night. She has a history of hemorrhoids, which have become more symptomatic since her bowel habits changed. She underwent a colonoscopy on 12/15/2019. She is drinking plenty of water and tries to walk regularly. - Labs: - Hemoglobin A1c: normal. - Renal function: mildly decreased. Past GI workup 04/30/24 last office visit notes as follows: Gemma Alonso, 68 year old female, with GERD and esophageal spasm. Symptoms controlled with pantoprazole. She is no longer requires Carafate. Last EGD was Mar 2023. She continues to take pantoprazole 40 mg daily. Last colonoscopy was November 2019. Negative family history. Symptoms controlled. Maintain pantoprazole. 04/01/23 Upper GI endoscopy was done for Epigastric abdominal pain, Unexplained chest pain, per Erna Merritt MD Normal mucosa was found in the entire esophagus. Z-line regular, 37 cm from the incisors. Normal stomach. Biopsied. Multiple gastric polyps. Biopsied. Normal examined duodenum. Biopsied. Path as follows A. Duodenum, biopsy: - Small bowel mucosa with a dilated lacteal and no other diagnostic alteration. - No evidence of celiac disease or enteritis. B. Stomach, biopsy: - Mild chronic inactive gastritis. - A Helicobacter pylori immunostain will be performed and reported separately. C. Gastric polyp, biopsy: - Fundic D, E. Esophagus, lower and proximal, biopsies: - Squamous mucosa with no significant diagnostic alteration. - No evidence of esophagitis or eosinophilia. 03/31/23 KUB as follows: Moderate stool in the colon 04/24/21 CT ABD/PEL W IVCON No acute process in the abdomen/pelvis. 10/26/20 NM HEPATOBILIARY W EF AND/OR RX Patent cystic and common bile duct. A low gallbladder ejection fraction consistent with biliary dyskinesia 12/15/2019 Colonoscopy: unremarkable (at [facility], records under scanned documents) Component 03/01/25 02/24/24 04/26/22 04/02/21 03/18/19 09/17/18 WBC 5.7 5.9 -- 6.7 5.5 5.8 RBC 4.38 4.67 -- -- -- -- Hgb 12.7 13.5 -- -- -- -- Hct 39.3 42 -- -- -- -- MCV 90 90 89.0 96 90 88 MCH 29.0 28.9 27.8 -- -- -- MCHC 32.3 32.1 31.3 Low -- -- -- RDW 12.2 12.5 12.9 -- -- -- Platelets 262 261 -- -- -- -- Component 03/01/25 02/24/24 04/26/22 04/02/21 03/18/19 09/17/18 Glucose 96 100 High -- -- -- -- BUN 17 18 -- -- -- -- Creat 1.33 High 1.26 High -- -- -- -- EGFR 43 Low 46 Low 55 Low -- -- -- BUN/Creat Ratio 13 14 -- -- -- -- Sodium 144 141 -- -- -- -- Potassium 4.2 4.1 -- -- -- -- Chloride 108 High 104 -- -- -- -- Carbon Dioxide 26 23 -- -- -- -- Calcium 9.7 9.8 -- -- -- -- Protein Total 6.7 7.1 -- -- -- -- Albumin 4.3 4.4 -- -- -- -- Globulin Total 2.4 2.7 -- -- -- -- Bili Total 0.8 0.7 -- -- -- -- Alk Phosphatase 106 114 -- -- -- -- AST 25 25 17 22 21 21 ALT 19 20 13 -- -- -- Component 03/01/25 02/24/24 Cholesterol, Total 151 221 High Triglycerides 113 146 HDL Cholesterol 40 39 Low VLDL Cholesterol Johnson 21 27 LDL Chol Calc (NIH) 90 155 High PAST MEDICAL HISTORY Diagnosis Date Essential hypertension GERD (gastroesophageal reflux disease) Hyperlipidemia IBS (irritable bowel syndrome) PAST SURGICAL HISTORY Procedure Laterality Date REMOVAL GALLBLADDER Current Outpatient Medications on File Prior to Visit Medication Sig sucralfate (CARAFATE) 1 gram tablet Take 1 tablet by mouth three times a day. pantoprazole DR (PROTONIX) 40 mg tablet Take 1 tablet by mouth once daily. multivitamin,hq-jhga-udlkruzd (THERAGRAN M) tab Take 1 tablet by mouth daily at bedtime. irbesartan (AVAPRO) 300 mg tablet Take 300 mg by mouth daily at bedtime. fexofenadine (BERNY) 180 mg tablet Take 1 tablet by mouth as needed. LACTOBACILLUS ACIDOPHILUS ORAL Take 1 tablet by mouth once daily. fluticasone propionate (FLONASE NASAL) Use 2 Sprays in the nose as needed. No current facility-administered medications on file prior to visit. Allergies: Doxycycline Swelling Erythromycin Base Anaphylaxis Comment:Other reaction(s): Anaphylaxis Other reaction(s): Anaphylaxis Mold Other: See Comments Tetracyclines Review of Systems Constitutional: Negative for chills, fatigue and fever. HENT: Negative for hearing loss, nosebleeds, tinnitus and trouble swallowing. Eyes: Negative for visual disturbance. Respiratory: Negative for cough, shortness of breath and wheezing. Cardiovascular: Negative for chest pain and palpitations. Gastrointestinal: Positive for abdominal pain and constipation. Negative for abdominal distention, blood in stool, diarrhea, nausea and vomiting. Endocrine: Negative for polyphagia. Genitourinary: Negative for dysuria, frequency and hematuria. Musculoskeletal: Negative for arthralgias and joint swelling. Skin: Negative for pallor and rash. Neurological: Negative for dizziness, tremors, seizures, syncope and headaches. Hematological: Does not bruise/bleed easily. Wt 100.8 kg (222 lb 3.6 oz) BMI 39.37 kg/m?? Physical Exam Constitutional: General: She is not in acute distress. HENT: Mouth/Throat: Pharynx: Oropharynx is clear. Eyes: Conjunctiva/sclera: Conjunctivae normal. Cardiovascular: Rate and Rhythm: Normal rate and regular rhythm. Pulmonary: Effort: Pulmonary effort is normal. Breath sounds: Normal breath sounds. Abdominal: General: Bowel sounds are normal. There is no distension. Palpations: Abdomen is soft. Tenderness: There is no abdominal tenderness. There is no guarding or rebound. Musculoskeletal: General: No swelling. Skin: General: Skin is warm and dry. Coloration: Skin is not jaundiced. Neurological: Mental Status: She is alert. Mental status is at baseline. ASSESSMENT/PLAN: 69 y/o female with LUQ pain, GERD, constipation. GERD overall stable with pantoprazole and Carafatebut Carafate likely etiology for constipation. At this time will increase pantoprazole to twice daily and stop Carafate. Continue to monitor LUQ pain and constipation issues. Consider fiber supplementation. If hemorrhoidal issues persist consider referral to colorectal. 1. Irritable bowel syndrome with constipation - ICD9: 564.1, ICD10: K58.1 (primary diagnosis) 2. LUQ pain - ICD9: 789.02, ICD10: R10.12 3. Gastroesophageal reflux disease without esophagitis - ICD9: 530.81, ICD10: K21.9 4. Esophageal spasm - ICD9: 530.5, ICD10: K22.4 5. Hemorrhoids, unspecified hemorrhoid type - ICD9: 455.6, ICD10: K64.9 Stan Girard Jr. documented in this encounter Plan of Treatment DateTypeDepartmentCare Team (Latest Contact Info)Mukohaokehb09/17/2026 11:20 AM EDTOffice Visit Gastroenterology [address] [place], [place] [id number] Stan Girard Jr., DO [address] [facility] [address] [place] [phone] 1 year Follow-updocumented as of this encounter Visit Diagnoses Diagnosis Irritable bowel syndrome with constipation- Primary Irritable bowel syndrome LUQ pain Abdominal pain, left upper quadrant Gastroesophageal reflux disease without esophagitis Esophageal reflux Esophageal spasm Dyskinesia of esophagus Hemorrhoids, unspecified hemorrhoid type documented in this encounter Care Teams Team MemberRelationshipSpecialtyStart DateEnd Date Nadir Kenny DO [address] [place] [address] PCP - GeneralFamily Uapcdwar20/13/23documented as of this encounter
--- OUTSIDE RECORDS SUMMARY | 2025-05-10 09:42 | XMS_ITS | Clinical Summary ---
Author Organization [facility] Address [address] [place] [address] Care Team Providers Care Steamblaster Name Role Phone Nadir Kenny DO Primary Care Provider [phone] Allergies Active AllergyReactionsCriticalityNoted DateCommentsDoxycyclineSwellingHigh 10/06/2019Erythromycin MusgYadsdasryof67/30/2019 Other reaction(s): Anaphylaxis Other reaction(s): Anaphylaxis MoldOther: See Loadtbyb23/28/3146Qljswkegzunet57/28/2004 Medications MedicationSigDispense QuantityRefillsLast FilledStart DateEnd DateStatus multivitamin,ht-bjbd-emguvnul (THERAGRAN M) tab Take 1 tablet by mouth daily at bedtime.02/28/2020Active irbesartan (AVAPRO) 300 mg tablet Take 300 mg by mouth daily at bedtime.03/15/2023ctive fexofenadine (BERNY) 180 mg tablet Take 1 tablet by mouth as needed.Active LACTOBACILLUS ACIDOPHILUS ORAL Take 1 tablet by mouth once daily.Active fluticasone propionate (FLONASE NASAL) Use 2 Sprays in the nose as needed.Active rosuvastatin (CRESTOR) 5 mg tablet Take 5 mg by mouth once daily.5Active pantoprazole DR (PROTONIX) 40 mg tablet Take 1 tablet by mouth two times a day. 60 tablet /ctive pantoprazole DR (PROTONIX) 40 mg tablet Take 1 tablet by mouth once daily. 90 tablet /Discontinued sucralfate (CARAFATE) 1 gram tablet Take 1 tablet by mouth three times a day. 90 tablet 5055107/07/2024Discontinued Active Problems ProblemNoted DateDiagnosed DateObesity, Class II, BMI 35-39.9106/01/2022hest pain03/31/2023ERD (gastroesophageal reflux disease)03/31/2023HTN (hypertension) 03/31/2023HLD (hyperlipidemia)03/31/2023IBS (irritable bowel syndrome)03/31/2023 Stage 3a chronic kidney rqlyqda4603/31/2023Other voice and resonance disorders 08/07/2004 Resolved Problems ProblemNoted DateDiagnosed DateResolved DateMorbid qxohlor14/ Encounters DateTypeDepartmentCare DuhqCgkxbmkrtri38/19/2025 8:00 AM ESTOffice Visit Gastroenterology [address] [place] [id number] Stan Girard Jr., DO Irritable bowel syndrome with constipation (Primary Dx); LUQ pain; Gastroesophageal reflux disease without esophagitis; Esophageal spasm; Hemorrhoids, unspecified hemorrhoid type05/06/20252201Wajtvg01/16/2025Travelfrom Last 3 Months Immunizations ImmunizationAdministration DatesNext Dueinfluenza (IIV4) vaccine, age [...] steady place to sleep or slept in [facility] (including now)?No03/31/2023Housing Stability Vital SignAnswerDate RecordedIn the last 12 months, was there a time when you were not able to pay the mortgage or rent on time?No03/31/2023Number of Times Moved in the Last Year Not on file03/31/2023Homeless in the Last YearNot on file03/31/2023rea Deprivation IndexAnswerDate RecordedNational Score (1-100), lower number is lower ukpc753004/30/2024State Score (1-10), lower number is lower esza46507/01/2023 Data from: https://www.neighborhoodatlas.medicine.[facility].edu/. Last address used for [address]04/30/2024CommentsNoSex and Gender InformationValueDate RecordedSex Assigned at BirthNot on fileLegal SexFemale 04/19/2012 9:00 AM ESTGender IdentityNot on fileSexual OrientationNot on file Last Filed Vital Signs Vital SignReadingTime TakenCommentsBlood Sedaqsie407/8504/30/2024 12:15 PM EST Ehnzd600304/30/2024 12:15 PM TSQAleraauredl71.6 ??C (97.9 ??F)04/30/2024 12:15 PM ESTRespiratory Wimy9568 7:36 AM ESTOxygen Hgfoaxezwv318%04/30/2024 12:15 PM ESTInhaled Oxygen Concentration--Zdbcyl252.8 kg (222 lb 3.6 oz)05/06/2025 7:51 AM FKWFoqvjp497 cm (5' 3 )12/16/2023 8:31 AM EDTBody Mass Index39.37 12/16/2023 8:31 AM EDT Plan of Treatment DateTypeDepartmentCare Team (Latest Contact Info)Xfbliepyjux18/17/2026 11:20 AM EDTOffice Visit Gastroenterology [address] [place], [place] [phone] Stan Girard Jr., DO [address] [facility] [address] [address] 1 year Follow-upHealth MaintenanceDue DateLast DoneCommentsAnnual PCP Team Chronic Disease Visit1971Anxiety Yfiommswc54/15/1972Depression Screening 1971Hepatitis C Zudmanpdc63/15/1972DTaP,Tdap,Td Vaccine (1 - Tdap) 1972CT Ywfiradqcbbj06/15/1999Cologuard (FIT-DNA)1998Colonoscopy 1998Colorectal Cancer Kuawustkd72/15/1999Fecal Occult Blood1998 Vjylvnqlyjkwb18/15/1999Shingrix Vaccine (1 of 2)2003Medicare Annual Wellness Visit06/19/2018Bone Density Gtuoqbtix89/15/2019Hemoglobin/Hematocrit 4106/02/2022, 03/31/2023, 02/03/2020, Additional history existsSerum Qjezjjukgb66/15/178364/, 04/01/2023, 03/31/2023, Additional history existsAdvance Directive Ihybavsecc70/01/2025ovid-19 Vaccine ( season)509/, 02/25/2023, 09/25/2022, Additional history exists Influenza Vaccine (#1)/12/2023, 02/25/2023, 03/15/2022, Additional history existsMammogram Ijtmuufeb56/05/2024, 04/18/2025, 02/01/2021, Additional history existsDiabetes Yasdkjpnj13/, 02/24/2024, 04/02/2023, Additional history existsLipid Gdwaqauex92/RSV Vaccine (1 - 1-dose 75+ series)2028Pneumococcal Vaccine: 50+Completed 03/07/2025, 03/26/2020, 03/18/2019 Procedures Procedure NamePriorityDate/TimeAssociated DiagnosisCommentsPT ED PATIENT BAWEMXPUBSO15/19/2025 CBC AUTO WO SPVUIMFW03/15/2023 8:26 AM EST BASIC METABOLIC HHBWRYFMP76/15/2023 8:26 AM EST LIPID PANEL, FASTINGAdd-on03/31/2023 9:22 AM EST from Last 3 Months or Most Recently Relevant to Health Maintenance Results * PT ED PATIENT INFORMATION (04/06/2025)Specimen (Source)Anatomical Location / LateralityCollection Method / VolumeCollection TimeReceived Time04/06/2025 Narrative AKIRA - 05/07/2025 Provider OKSANA BLACKMON your patient EZEQUIEL NUÑEZ has not started their Akira program, time has . Akira program: PATIENT SAFETY INSTRUCTIONS FOR HEALTHCARE SETTINGS Authorizing ProviderResult TypeResult StatusDavid Reynaldo Girard Jr., DOEMMIFinal ResultPerforming OrganizationAddressCity/State/ZIP CodePhone Number AKIRA * CBC (04/02/2023 8:26 AM EST)ComponentValueRef RangeTest MethodAnalysis Time Performed AtPathologist SignatureWBC5.733.70 - 11.00 k/uL04/02/2023 8:37 AM [facility] LABORATORYRBC4.323.90 - 5.20 m/uL04/02/2023 8:37 AM [facility] CPSPLMNMHPTnkkhpmhbo47.311.5 - 15.5 g/dL04/02/2023 8:37 AM [facility] IEPZAANZUDFizwbntobn62.036.0 - 46.0 %04/02/2023 8:37 AM [facility] CEASCYVMJHTXY25.380.0 - 100.0 fL04/02/2023 8:37 AM [facility] XMQWAIVBVUPJT46.526.0 - 34.0 pg04/02/2023 8:37 AM [facility] MCHC31.530.5 - 36.0 g/dL04/02/2023 8:37 AM [facility] LABORATORYRDW-CV 12.411.5 - 15.0 %04/02/2023 8:37 AM [facility] LABORATORYPlatelet Count 699437 - 400 k/uL04/02/2023 8:37 AM [facility] NOABJGTSOSZEZ90.79.0 - 12.7 fL04/02/2023 8:37 AM [facility] LABORATORYAbsolute nRBC<0.01<0.01 k/uL04/02/2023 8:37 AM [facility] LABORATORYSpecimen (Source)Anatomical Location / LateralityCollection Method / VolumeCollection TimeReceived Time BloodBLOOD SPECIMEN / UnknownVenipuncture / Mtpjemv1204/02/2023 8:26 AM EST 04/02/2023 8:30 AM EST Narrative Authorizing ProviderResult TypeResult StatusTing Melo MDLABORATORYFinal Result Performing OrganizationAddressCity/State/ZIP CodePhone Number [facility] [address] [facility] [place] [address], [place] * (ABNORMAL) BASIC METABOLIC PNL (04/02/2023 8:26 AM EST)ComponentValueRef Range Test MethodAnalysis TimePerformed AtPathologist CoiitgnaoTcybkdj285(H)74 - 99 mg/dL04/02/2023 9:01 [facility] LABORATORYComment: The [place] Diabetes Association (ADA) provides guidance for cutoff [...] Standards of Medical Care in Diabetes 2016, [place] Diabetes Association. Diabetes Care. 2016.39(Suppl 1). HHQ318 - 21 mg/dL04/02/2023 9:01 [facility] LABORATORYCreatinine1.28(H) 0.58 - 0.96 mg/dL04/02/2023 9:01 [facility] EITGDXVNVIXisodh228500 - 144 mmol/L106/02/2022 9:01 [facility] LABORATORYPotassium3.5(L)3.7 - 5.1 mmol/L106/02/2022 9:01 [facility] EAWJPSZNEZUmtdokqx37585 - 105 mmol/L 04/02/2023 9:01 [facility] SFQCHKHTGLFD83893 - 30 mmol/L106/02/2022 9:01 [facility] LABORATORYAnion Xbi238 - 18 mmol/L106/02/2022 9:01 [facility] LABORATORYCalcium, Total9.18.5 - 10.2 mg/dL04/02/2023 9:01 [facility] LABORATORYEstimated Glomerular Filtration Rate45(L)>=60 mL/min/1.73m 04/02/2023 9:01 [facility] LABORATORYComment:Estimated Glomerular Filtration Rate (eGFR) [...] VolumeCollection TimeReceived TimeBloodBLOOD SPECIMEN / UnknownVenipuncture / Wndjdma4204/02/2023 8:26 AM EST04/02/2023 8:29 AM EST Narrative Authorizing ProviderResult TypeResult StatusTing Melo MDLABORATORYFinal Result Performing OrganizationAddressCity/State/ZIP CodePhone Number [facility] [address] [facility] [place] [address], [place] * (ABNORMAL) LIPID PANEL BASIC (03/31/2023 9:22 AM EST)ComponentValueRef Range Test MethodAnalysis TimePerformed AtPathologist SignatureCholesterol, Exrce497 (H)<200 mg/dL03/31/2023 1:55 PM [facility] LABORATORYComment: <200 mg/dL, Desirable 200-239 mg/dL, Borderline high >239 mg/dL, High Qfzlkyqhhtaf158<150 mg/dL03/31/2023 1:55 PM [facility] LABORATORYComment: <150 mg/dL, Normal 150-199 mg/dL, Borderline high 200-499 mg/dL, High >499 mg/dL, Very high HDL Uayjcbdwinj99>39 mg/dL03/31/2023 1:55 PM [facility] LABORATORYComment: 40-59 mg/dL, Acceptable >59 mg/dL, High: Negative risk factor for coronary heart disease <40 mg/dL, Low: Positive risk factor for coronary heart disease Non HDL Stzgzdnnfuj900(H)<130 mg/dL03/31/2023 1:55 PM [facility] LABORATORYComment: <130 mg/dL, Optimal 130-159 mg/dL, Near optimal/above optimal 160-189 mg/dL, Borderline high 190-219 mg/dL, High >219 mg/dL, Very high Secondary prevention optimal non HDL Cholesterol levels are recommended to be <100 mg/dL Fasting Time03/31/2023 1:55 PM [facility] LABORATORYComment:UnknownVLDL Idifyyeosok41<30 mg/dL03/31/2023 1:55 PM [facility] LABORATORYTC:HDL Ratio 5.41(H)<5.10105/31/2022 1:55 PM [facility] LABORATORYLDL Cholesterol, Mmcuztkrrf941(H)<100 mg/dL03/31/2023 1:55 PM [facility] LABORATORYComment: <100 mg/dL, Optimal 100-129 mg/dL, Near optimal/above optimal 130-159 mg/dL, Borderline high 160-189 mg/dL, High >189 mg/dL, Very high Secondary prevention optimal LDL Cholesterol levels are recommended to be < 70 mg/dL LDL:HDL Ratio3.85(H)<2.5403/31/2023 1:55 PM [facility] LABORATORYComment: Reference: 1. National Cholesterol Education Program ATP III Guideline At-A-Glance Quick Desk Reference: National Heart, Lung, and Blood [place]. National Institutes of Health. 2001: NIH Publication [...] Chauhan APRN.CNPLABORATORY Final ResultPerforming OrganizationAddressCity/State/ZIP CodePhone Number [facility] [address] [place] [address], from Last 3 Months or Most Recently Relevant to Health Maintenance Insurance MemberSubscriberPlan / Payer (Effective 2018-Present)Name:Ezequiel Nuñez Member ID:[id number] Relation to Subscriber:SelfName:Ezequiel Nuñez Subscriber ID:[id number] Payer ID:Not on file Group ID:Not on file Type:Medicare Address: [facility] [place] [id number] Advance Directives * Full Code (Latest Code Status on File) Date ActivatedDate EoruxclsjhxQvgbsqtj34/13/2023 12:50 PM04/02/2023 1:09 PM QuestionAnswerCommentsFull Code Order Discussed With:* Patient Care Teams Team MemberRelationshipSpecialtyStart DateEnd Date Nadir Kenny DO [address] [place] [address] PCP - GeneralFamily Derczzjy41/13/23
--- OUTSIDE RECORDS SUMMARY | 2025-05-10 09:42 | XMS_ITS | Clinical Summary ---
Author Organization [facility] Address [address] [place] [address], [address] [place] [address] Care Team Providers Care Loom Fixer Helper Name Role Phone Unavailable Primary Care Provider Unavailabl e Social History Tobacco UseTypesPacks/DayYears UsedDateSmoking Tobacco: Never Assessed CommentsUnknownSex and Gender InformationValueDate RecordedSex Assigned at Not on fileLegal XhvPunkyr86/12/2013 4:00 AM ESTGender IdentityNot on fileSexual OrientationNot on file Plan of Treatment Not on file
--- OUTSIDE RECORDS SUMMARY | 2025-05-10 09:42 | XMS_ITS | Encounter Summary ---
Author Organization [facility] Address [address] [place] [address] Care Team Providers Care Jig Box Operator Name Role Phone Nadir Kenny DO Unavailable Nadir Kenny DO Primary Care Provider [phone] Reason for Visit * ReasonCommentsMed Refill Encounter Details DateTypeDepartmentCare Team (Latest Contact Info)Jahdsfzwupo52/20/2025Refill [facility] [address] [facility] [place] [address] [place] [id number] Nadir Kenny, [address] [facility] [address] [place] [address] Mixed hyperlipidemia Social History Tobacco UseTypesPacks/DayYears UsedDateSmoking Tobacco: NeverPassive Smoke Exposure: NeverSmokeless Tobacco: NeverAlcohol UseStandard Drinks/WeekComments Never0 (1 standard drink = 0.6 oz pure alcohol)Humiliation, Afraid, Rape, and Kick questionnaireAnswerDate RecordedWithin the last year, have you been afraid of your partner or ex-partner?No04/14/2023Within the last year, have you been humiliated or emotionally abused in other ways by your partner or ex-partner?No 04/14/2023Within the last year, have you been kicked, hit, slapped, or otherwise physically hurt by your partner or ex-partner?No04/14/2023Within the last year, have you been raped or forced to have any kind of sexual activity by your part ner or ex-partner?No04/14/2023Social Connection and Isolation PanelAnswerDate RecordedIn a typical week, how many times do you talk on the phone with family, friends, or neighbors?More than three times a week04/14/2023How often do you get together with friends or relatives?Twice a week04/14/2023How often do you attend christian or confucianism services?More than 4 times per year04/14/2023o you belong to any clubs or organizations such as christian groups, unions, [employer] or athletic groups, or school groups?Yes04/14/2023How often do you attend meetings of the clubs or organizations you belong to?More than 4 times per year04/14/2023 Are you , , , , never , or living with a partner?Xfejykb1204/14/2023UDIT-CAnswerDate RecordedQ1: How often do you have a drink containing alcohol?Never04/14/2023Q2: How many drinks containing alcohol do you have on a typical day when you are drinking?Patient does not drink 04/14/2023Q3: How often do you have six or more drinks on one occasion?Never 04/14/2023Overall Financial Resource Strain (CARDIA)AnswerDate RecordedHow hard is it for you to pay for the very basics like food, housing, medical care, and heating?Not very hard04/14/2023HQ-2AnswerDate RecordedPatient Health Questionnaire-2 Eudsv766Finmountainstar healthcare [place] of Occup[facility] - Occupational Stress QuestionnaireAnswerDate RecordedDo you feel stress - tense, restless, nervous, or anxious, or unable to sleep at night because yourmind is troubled all the time - these days?Only a ikghwh2204/14/2023Exercise Vital Sign AnswerDate RecordedOn average, how many days per week do [...] 12 months, how many places have you lived?In the last 12 months, was there a time when you did not have a steady place to sleep or slept in ashelter (including now)?No 04/14/2023CommentsUnknownSex and Gender InformationValueDate RecordedSex Assigned at BirthNot on fileLegal VxhDmooob18/01/2023 8:35 PM EDTGender Identity Not on fileSexual OrientationNot on filedocumented as of this encounter Plan of Treatment Not on file documented as of this encounter Visit Diagnoses Diagnosis Mixed hyperlipidemia documented in this encounter Additional Health Concerns AssessmentNoted TimePHQ-9 Depression Total Score: 1:49 PM EDT documented as of this encounter Care Teams Team MemberRelationshipSpecialtyStart DateEnd Date Nadir Kenny DO [address] [place] [address] [place] [address] PCP - ACO Reach10/10/22 Nadir Kenny DO [address] [place] [address] [place] [address] PCP - GeneralFamily Medicine09/24/22documented as of this encounter
--- OUTSIDE RECORDS SUMMARY | 2025-05-10 09:42 | XMS_ITS | Encounter Summary ---
Author Organization [facility] Address [facility] [place] [address] Care Team Providers Care Scale Tank Operator Name Role Phone Nadir Kenny Domenic GALVEZ Primary Care Provider [phone] Source Comments In the event this information is protected by the Federal Confidentiality of Alcohol and Drug AbusePatient Records regulations: The Federal rules restrict any use of the information to criminally investigate or prosecute any alcohol or drug abuse patient.[facility] Encounter Details DateTypeDepartmentCare Team (Latest Contact Info)Cwwjpzkcmwt86/16/2025Travel Social History Tobacco UseTypesPacks/DayYears UsedDateSmoking Tobacco: NeverSmokeless Tobacco: NeverAlcohol UseStandard Drinks/WeekCommentsNot Currently0 (1 standard drink = 0.6 oz pure alcohol)sociallyHunger Vital SignAnswerDate RecordedWithin the past 12 months, you worried that your food would run out before you got the money to buymore.Never true03/31/2023Within the past 12 months, the food [...] steady place to sleep or slept in [facility] (including now)?No03/31/2023Housing Stability Vital SignAnswerDate RecordedIn the last 12 months, was there a time when you were not able to pay the mortgage or rent on time?No03/31/2023Number of Times Moved in the Last Year Not on file03/31/2023Homeless in the Last YearNot on file03/31/2023rea Deprivation IndexAnswerDate RecordedNational Score (1-100), lower number is lower jiqq237604/30/2024State Score (1-10), lower number is lower pxqz18107/01/2023 Data from: https://www.neighborhoodatlas.medicine.[facility].edu/. Last address used for [address]CommentsNoSex and Gender InformationValueDate RecordedSex Assigned at BirthNot on fileLegal SexFemale 04/19/2012 9:00 AM ESTGender IdentityNot on fileSexual OrientationNot on file documented as of this encounter Functional Status * Are you deaf or do you have serious difficulty hearing?AnswerDate of QeqhhgooqaPvqxksBf36/15/2023 9:38 AM Victor Manuel Whitlock RN * Are you blind or do you have serious difficulty seeing, even when wearing glasses?AnswerDate of GgtoyiwfmrSvrcxvQh28/15/2023 9:38 AM Victor Manuel Whitlock RN * Do you have serious difficulty walking or climbing stairs?AnswerDate of BxpdbwbhpbLryatuKz89/15/2023 9:38 AM Victor Manuel Whitlock RN * Do you have difficulty dressing or bathing?AnswerDate of AssessmentAuthorNo 04/02/2023 9:38 AM Victor Manuel Whitlock RN * Because of a physical, mental, or emotional condition, do you have difficulty doing errands alone such as visiting a doctor's office or shopping?AnswerDate of GezvvqfdntQmemgxGe82/15/2023 9:38 AM Victor Manuel Whitlock RN documented as of this encounter Mental Status * Because of a physical, mental, or emotional condition, do you have serious difficulty concentrating, remembering, or making decisions?AnswerEntry Date RgoaxmMb83/15/2023 9:38 AM Victor Manuel Whitlock RN documented in this encounter Plan of Treatment DateTypeDepartmentCare Team (Latest Contact Info)Wknmblgtnyr12/17/2026 11:20 AM EDTOffice Visit Gastroenterology [address] [facility] [place], [place] [id number] Stan Girard Jr., DO [address] [facility] [address] [place] [address] 1 year Follow-updocumented as of this encounter Visit Diagnoses Not on filedocumented in this encounter Care Teams Team MemberRelationshipSpecialtyStart DateEnd Date Nadir Kenny DO [address] [facility] [address] [place] [address] PCP - GeneralFamily Wxfpqcwe01/13/23documented as of this encounter
--- OUTSIDE RECORDS SUMMARY | 2025-05-10 09:42 | XMS_ITS | Clinical Summary ---
Author Organization [facility] Address [address] [place] [address] Phone Care Team Providers Care Environmental Tech Name Role Phone Unavailable Primary Care Provider Unavailabl e Social History Tobacco UseTypesPacks/DayYears UsedDateSmoking Tobacco: Never Assessed CommentsUnknownSex and Gender InformationValueDate RecordedSex Assigned at Not on fileLegal DpoKbzmvm30/25/2022 11:20 PM ESTGender IdentityNot on file Sexual OrientationNot on file Plan of Treatment Not on file
--- OUTSIDE RECORDS SUMMARY | 2025-05-10 09:42 | XMS_ITS | Clinical Summary ---
Author Organization [facility] Address [address] [place] [address] Care Team Providers Care Automotive Mechanic Name Role Phone Nadir Mac DO Unavailable [phone] Nadir Mac DO Primary Care Provider [phone] Allergies Active AllergyReactionsCriticalityNoted DateCommentsDoxycyclineHives,Swelling, HrkzzqrFint04/20/2020Erythromycin HkpiZsnsltyuyntOnga00/30/2019 Other reaction(s): Anaphylaxis Molds & Smuts12/14/2003 Other [...] the tongue every 4 (four) hours if gwarbd8508/08/2023ctive irbesartan (Avapro) 300 MG tablet Indications:Essential hypertensiontake [...] mg) by mouth Daily 30 tablet 508/25/2025Active fexofenadine (Rosie) 180 MG tablet Take 180 mg by mouth DailyActive rosuvastatin (Crestor) 5 MG tablet Indications:Mixed hyperlipidemiaTAKE 1 TABLET BY MOUTH EVERY EVENING 90 tablet 5Active rosuvastatin (Crestor) 5 MG tablet Indications:Mixed hyperlipidemia1 tablet po each evening 30 tablet /05/2024Discontinued(Reorder) rosuvastatin (Crestor) 5 MG tablet Indications:Mixed hyperlipidemia1 tablet po each evening 30 tablet /Discontinued Active Problems ProblemNoted DateDiagnosed DateElevated blood pressure cpngfqy4401/05/2025 Radiculopathy affecting upper lvlojsxad28/20/2025Sciatica of right side 11/10/2024bnormal resting ECG kvcpfidh81/07/2024iastolic heart failure 02/23/2024Elevated troponin I level02/23/2024Lower abdominal pain02/23/2024enal cyst02/23/2024Unstable eexkzn5902/23/20241649Ggrqqfe85/24/2024lass 2 obesity 06/11/2023Gout06/11/2023Morbid uimzkqn7006/11/2023Neuroma of second interspace of left foot06/11/2023Osteoarthritis of knee06/11/2023Solitary pulmonary nodule 06/11/2023Tinnitus of both ears06/11/2023PPV (benign paroxysmal positional vertigo), left05/06/2023ersistent postural-perceptual zscmxaddc71/30/2023 Migraine with aura and without status migrainosus, not ifenjhcszui91/30/2023 Balance ghtkedcj99/28/7861Fiksguaqkle38/28/2023Obesity, Class II, BMI 35-39.9 04/01/2023hest pain03/31/2023Essential auszmqbkkldj46/13/2023ERD (gastroesophageal reflux disease)03/31/20234530Ukhkcxytlpbpyv38/13/2023IBS (irritable bowel syndrome)03/31/2023Stage 3a chronic kidney ccasekz2803/31/2023 Age-related nuclear cataract of both eyes11/22/2022ry eyes11/22/2022mblyopia of right eye11/22/2022lepharitis of upper and lower eyelids of both eyes 11/22/2022Other voice and resonance hftpralot02/22/2005 Encounters DateTypeDepartmentCare NlggMleumbjxhff40/20/2025[facility] [address] [place] [phone] Nadir Mac DO Mixed hyolwtvgjjqaet05/01/2025Refill [facility] [address] [place] [phone] Ariana Brandon MA Mixed vqwuhwativjzme56/01/2025Results Follow-Up [facility] [address] [place] [address] Tr Sibley PA Bilateral screening mammogram with zdryloyiwjoyf06/01/2025Orders Only [facility] [address] [place] [phone] Radha Pace MA Encounter for screening mammogram for malignant neoplasm of breast; Jqtjdmupyrjtso73/28/2025linisync Result Encounter [facility] External Department Unsolicited Nadir Mac DO 03/07/2025 9:20 AM EDTOffice Visit [facility] [address] [place] [phone] Nadir Mac DO Mixed hyperlipidemia (Primary Dx); Essential hypertension; Irritable bowel syndrome with both constipation and diarrhea; Pre-diabetes; Anxiety; Morbid (severe) obesity due to excess calories ([facility]); Obesity, class 2; Body mass index (BMI) 39.0-39.9, adult; Chronic kidney disease, stage 3b ([facility])03/07/2025 9:00 AM EDTOffice Visit [facility] [address] [place] [phone] Tr Sibley PA Routine general medical examination at health care facility (Primary Dx); Encounter for screening mammogram for malignant neoplasm of breast; Postmenopausal; Encounter for zsvmkjisimav85/20/2025Bamboo flowsheet [facility] [address] [place] [address] Tr Sibley PA 03/07/2025Travelfrom Last 3 Months Immunizations ImmunizationAdministration DatesNext DueInfluenza, Injectable, MDCK, preservative free03/18/2019Influenza, Madin Jennifer Canine Kidney, subunit, trivalent, injectable, contains ptgtfaubbsvf87/08/2024Influenza, Seasonal, Quadrivalent, Dqpioevpsg57/10/2023,03/15/2022,03/26/2021,03/26/2020Influenza, injectable, MDCK, preservative free, cydodgirdxwx81/15/2018Influenza, injectable, quadrivalent, preservative free04/02/2021,03/03/2018,03/25/2017 Pneumococcal Conjugate PCV 131Pneumococcal Conjugate PCV Pneumococcal Polysaccharide KURD073505/26/2019 Family History Medical HistoryRelationNameCommentsCancerBrother 2CraigMultiple sclerosisFather CancerMotherDorothyCataractsMotherDorothyHeart [...] relatives?Twice a week04/14/2023How often do you attend tenriism or advent services?More than 4 times per year04/14/2023o you belong to any clubs or organizations such as tenriism groups, unions, fraShanghai Yinku network or athletic groups, or school groups?Yes04/14/2023How often [...] very hard 04/14/2023HQ-2AnswerDate RecordedPatient Health Questionnaire-2 Score0 03/07/2025[facility] - Occupational Stress QuestionnaireAnswerDate RecordedDo you feel stress - tense, restless, nervous, or anxious, or unable to sleep at night because yourmind is troubled all the time - these days?Only a amilvk5004/14/2023Exercise Vital SignAnswerDate Recorded On average, how many [...] steady place to sleep or [facility] ([facility])?No04/14/2023Comments UnknownSex and Gender InformationValueDate RecordedSex Assigned at BirthNot on fileLegal UglCtpdtw34/01/2023 8:35 PM EDTGender IdentityNot on fileSexual OrientationNot on file Last Filed Vital Signs Vital SignReadingTime TakenCommentsBlood Mbgdgccx260/7603/07/2025 9:04 AM EDT Cmmvv311503/07/2025 9:04 AM BEZWtpesmejytc18.7 ??C (98.1 ??F)03/07/2025 9:04 AM EDTRespiratory Rate--Oxygen Mcsiowsuqp37%03/07/2025 9:04 AM EDTInhaled Oxygen Concentration--Bkxica693 kg (224 lb)03/07/2025 9:04 AM UCSSfwimx529 cm (5' 3 ) 03/07/2025 9:04 AM EDTBody Mass Index39.6803/07/2025 9:04 AM EDT Plan of Treatment Health MaintenanceDue DateLast DoneCommentsCT Zxdxswadobpn67/15/1954FIT-DNA 1955FIT1955FOBT02/15/1316Voznrqzshclkq79/15/1954COVID-19 Vaccine ( season)509/, 02/25/2023, 09/25/2022, Additional history existsInfluenza Vaccine (#1)510/12/2023, 02/25/2023, 03/15/2022, Additional history vucbwhIzhdcboig86/01/48211306/19/2024, 04/15/2025, 02/01/2021, Additional history ruuetbRmtvlbfjdim55, 08/17/2013, 08/17/2013Colorectal Cancer Kzkwmjmyx26/29/2030Pneumococcal Vaccine: 65+ RwnoiOpebjcgot36/20/2025, 03/26/2020, 03/18/2019 Procedures Procedure NamePriorityDate/TimeAssociated DiagnosisCommentsBI MAMMOGRAM SCREENING TOMOSYNTHESIS FPUWTRPJVTodlvem90/01/2025 8:21 AM EST Encounter for screening mammogram for malignant neoplasm of breast Postmenopausal MM TOMOSYNTHESIS SCREENING BI04/15/2025 8:58 AM EST HEMOGLOBIN A1C WITH MSPEotgxts18/14/2025 9:15 AM EDT Pre-diabetes LIPID IWZASDtixamh95/14/2025 9:15 AM EDT General medical exam COMPREHENSIVE METABOLIC TEIIDEijgujz00/14/2025 9:15 AM EDT General medical exam CBC (INCLUDES DIFF/PLT)Ciahcmq7203/01/2025 9:15 AM EDT General medical exam HM PFLGCDFLJVNVcxnops49/29/2020 1:09 PM EDTfrom Last 3 Months or Most Recently Relevant to Health Maintenance Results * Bilateral screening mammogram with tomosynthesis (04/18/2025 8:21 AM EST) Anatomical RegionLateralityModalityBreastBilateralMammography Narrative Authorizing ProviderResult TypeResult StatusRyevelyn URIARTE BI PROCEDURES Final Result * MM TOMOSYNTHESIS SCREENING BI (04/15/2025 8:58 AM EST)Anatomical Region LateralityModalityOtherSpecimen (Source)Anatomical Location / Laterality Collection Method / VolumeCollection TimeReceived Time04/15/2025 8:58 AM EST Narrative 04/15/2025 8:59 AM EST [facility] ?[address] ? [place] [address] ? Mammography Report ? Signed ? Patient: GEMMA NUÑEZ ?MR#: [id number] ?? : 1955 ?Acct:[id number] ?? Age/Sex: 69 / F ?ADM Date: 04/15/25 ?? Loc: MAMMO ? Attending Dr: NADIR MAC ? Ordering Physician: NADIR MAC ? Results: ? Date of Service: 04/15/25 ?Follow Up: ? Procedure(s): MM tomosynthesis screening BI ?? Accession Number(s): [id number] ? cc: NADIR MAC ? Patient Name: ? GEMMA NUÑEZ ? MR#: [id number] ? : 1955 ? Exam Date: 04/15/2025 ?? Ordering Doctor: DR NADIR MAC D.O. ? RADIOLOGY REPORT ? PROCEDURE: ? MM TOMOSYNTHESIS SCREENING BI ? COMPARISON: ? MG MAMM SCREEN 3D ENRIQUE CAD, 02/01/2021. ??MG MAMM SCREEN ENRIQUE W ?? CAD, 08/26/2013. ??MG MAMM SCREEN ENRIQUE W CAD, 09/26/2010. ? INDICATIONS: ? Breast cancer screening ? Calculator Name ? NCI Breast Cancer Risk Assessment Tool ?? 5 Year Breast Cancer Risk ? 3.00% ?? Lifetime Breast Cancer Risk ? 8.30% ?? Personal Breast Cancer ?No ?? Personal Ovarian Cancer ? No ?? Treatments ? None ?? Family Cancers ? Sister with breast cancer at age 72; Grandmother-paternal ?? with breast cancer at age 55; Brother with prostate cancer at age 75; Brother ?? with prostate cancer at age 50. ? LOCATION: ? [facility] ? BREAST COMPOSITION: ? There are scattered areas of fibroglandular density. ? FINDINGS: ? DIAGNOSTIC CATEGORY 0--INCOMPLETE: NEED ADDITIONAL IMAGING EVALUATION. ? RIGHT BREAST: ??Focal asymmetry central/inferior aspect of the right breast, ?? middle depth. ? LEFT BREAST: ??No significant suspicious finding. ? RECOMMENDATIONS: ? ADDITIONAL MAMMOGRAPHIC VIEWS REQUIRED: RIGHT BREAST - spot-compression/true ?? lateral views, possible ultrasound recommended. ? Dictated by: Rey Mitchell DO on 04/15/2025 at 08:55 ? Approved by: Rey Mitchell DO on 04/15/2025 at 08:58 ? Dictated By: ?Rey Mitchell M.D. ? Signed By: ?04/15/25 0859 ? DD/ 0858 ? TD/TT: ? Cattle Inspector: Procedure Note Radiology, Radiologist, MD - 04/18/2025 [place] [address] Mammography Report Signed Patient: GEMMA NUÑEZ PMR#: [id number] : 4Acct:[id number] Age/Sex: 69 / FADM Date: 04/15/25 Loc: MAMMO Attending Dr: NADIR MAC Ordering Physician: Marion MACults: Date of Service: 04/15/25Follow Up: Procedure(s): MM tomosynthesis screening BI Accession Number(s): [id number] cc: NADIR MAC Patient Name: GEMMA NUÑEZ MR#: [id number] : 1955 Exam Date: 04/15/2025 Ordering Doctor: DR NADIR MAC D.O. RADIOLOGY REPORT PROCEDURE: MM TOMOSYNTHESIS SCREENING BI COMPARISON: MG MAMM SCREEN 3D ENRIQUE CAD, 02/01/2021. MG MAMM SCREEN BILW CAD, 08/26/2013. MG MAMM SCREEN ENRIQUE W CAD, 09/26/2010. INDICATIONS: Breast cancer screening Calculator Name NCI Breast Cancer Risk Assessment Tool 5 Year Breast Cancer Risk 3.00% Lifetime Breast Cancer Risk 8.30% Personal Breast Cancer No Personal Ovarian Cancer No Treatments None Family Cancers Sister with breast cancer at age 72;Grandmother-paternal with breast cancer at age 55; Brother with prostate cancer at age 75;Brother with prostate cancer at age 50. LOCATION: [facility] BREAST COMPOSITION: There are scattered areas of fibroglandulardensity. FINDINGS: DIAGNOSTIC CATEGORY 0--INCOMPLETE: NEED ADDITIONAL IMAGING EVALUATION. RIGHT BREAST: Focal asymmetry central/inferior aspect of the rightbreast, middle depth. LEFT BREAST: No significant suspicious finding. RECOMMENDATIONS: ADDITIONAL MAMMOGRAPHIC VIEWS REQUIRED: RIGHT BREAST -spot-compression/true lateral views, possible ultrasound recommended. Dictated by: Rey Mitchell DO on 04/15/2025 at 08:55 Approved by: Rey Mitchell DO on 04/15/2025 at 08:58 Dictated By: Rey Mitchell M.D. Signed By:04/15/25 0859 DD/ 0858 TD/TT: Cattle Inspector: Authorizing ProviderResult TypeResult StatusPaehsan Mac DOCLINISYNC IMAGING Final Result * Hemoglobin a1c with eag (03/01/2025 9:15 AM EDT)ComponentValueRef RangeTest MethodAnalysis TimePerformed AtPathologist TjhralnpgZljT7Q1.34.8 - 5.6 % LABCORPComment: ? Prediabetes: 5.7 - 6.4 Diabetes: >6.4 Glycemic control for adults with diabetes: <7.0 Est Avg Gluc iUZ745fl/dLLABCORPSpecimen (Source)Anatomical Location / Laterality Collection Method / VolumeCollection TimeReceived TimeBloodVenous blood specimen / Uvucdxj8803/01/2025 9:15 AM EDT1 Narrative [facility] - 03/02/2025 9:07 AM EDT Performed at: [address], [place], [place] [id number] Slope Hoist Operator: Chito Palacios PhD, Phone: ??[phone] Authorizing ProviderResult TypeResult StatusPaul Domenic Mac DOLAB BLOOD ORDERABLES Final ResultPerforming OrganizationAddressCity/State/ZIP CodePhone Number [facility] * CBC and differential (03/01/2025 9:15 AM EDT)ComponentValueRef RangeTest MethodAnalysis TimePerformed AtPathologist SignatureWBC5.73.4 - 10.8 x10E3/uL LABCORPRBC4.383.77 - 5.28 x10E6/cEFVOWVHXBvb86.711.1 - 15.9 g/gPXIFGZTCEik50.3 34.0 - 46.6 %IWCOVDTFUW7383 - 97 jZCGKHHUQZWX27.026.6 - 33.0 xlDWUFVWMZEXP25.3 31.5 - 35.7 g/lILLDJHJEXNP21.211.7 - 15.4 %LTVMJEDYblkamnft185784 - 450 x10E3/xWFBAWHABDheflnulqes28Pje Estab. %NITETZZOletpz76Odr Estab. %[facility] Hdjdtredq80Hjo Estab. %AMWUKEAGbu4Xuq Estab. %YEBSCWGJptyj2Tkr Estab. %[facility] Neutrophils Abs3.11.4 - 7.0 x10E3/uLLABCORPLymphs Abs1.90.7 - 3.1 x10E3/uL [facility]ABCORPMonocytesAbs0.60.1 - 0.9 x10E3/uLLABCORPEos Abs0.10.0 - 0.4 x10E3/uL [facility]PBaso Abs0.10.0 - 0.2 x10E3/uLLABCORPImmature Ohkrnfvokeui5Msk Estab. % LABCORPImmature Grans Abs0.00.0 - 0.1 x10E3/uLLABCORPSpecimen (Source) Anatomical Location / LateralityCollection Method / VolumeCollection Time Received TimeBloodVenous blood specimen / Gerkkir1503/01/2025 9:15 AM EDT 03/01/2025 Narrative [facility] - 03/02/2025 9:07 AM EDT Performed at: 01 - [place] [address] [address] [facility], [address] [place] [address] ??[id number] Slope Hoist Operator: Ryder Major MD, Phone: ??[phone] Authorizing ProviderResult TypeResult StatusThomas [facility] BLOOD ORDERABLES Final ResultPerforming OrganizationAddressty/State/ZIP CodePhone Number [facility] * Lipid panel (03/01/2025 9:15 AM EDT)ComponentValueRef RangeTest MethodAnalysis TimePerformed AtPathologist SignatureCholesterol, Blrqk612076 - 199 mg/dL UXTNRHUUnhnfevfnaisg4939 - 149 mg/dLLABCORPHDL Wehjocxcpzu79>39 mg/dLLABCORP VLDL Cholesterol Orl122 - 40 mg/dLLABCORPLDL Chol Calc (NIH)900 - 99 mg/dL [facility]ABC[facility]PSpecimen (Source)Anatomical Location / LateralityCollection Method / VolumeCollection TimeReceived TimeBloodVenous blood specimen / Unknown 03/01/2025 9:15 AM EDT1 Narrative [facility] - 03/02/2025 9:07 AM EDT Performed at: [address] - [address] ??[id number] Slope Hoist Operator: Chito Palacios PhD, Phone: ??[phone] Authorizing ProviderResult TypeResult StatusPaMemorial Hospital West BLOOD ORDERABLES Final ResultPerforming OrganizationAddMeadows [facility]iatric [facility]/ZIP CodePhone Number [facility] * (ABNORMAL) Comprehensive metabolic panel (03/01/2025 9:15 AM EDT)Component ValueRef RangeTest MethodAnalysis TimePerformed AtPathologist SignatureGlucose 9670 - 99 mg/iHQMSIMGWBXH228 - 27 mg/dLLABCORPCreat1.33(H)0.57 - 1.00 mg/dL UGQTVZSEIAH54(L)>59 mL/min/1.73LABCORPBUN/Creat Ulrwt2245 - 06KKQMXLQAsqlji245 134 - 144 mmol/[facility]ABCORPPotassium4.23.5 - 5.2 mmol/MSGIDVSNAqkxhngo051(H)96 - 106 mmol/[facility]ABCORPCarbon Rdsvfap3423 - 29 mmol/[facility]ABCORPCalcium9.78.7 - 10.3 mg/dLLABCORPProtein Total6.76.0 - 8.5 g/dLLABCORPAlbumin4.33.8 - 4.8 g/dL [facility]ABCORPGlobulin Total2.41.5 - 4.5 g/dLLABCORPBili Total0.80.0 - 1.2 mg/dL [facility]ABCORPAlk Dpogaxnemxs29078 - 135 IU/CVUQKAKNUEG9608 - 59 IU/OIPHATUYMWN294 - 35 IU/[facility]PSpecimen (Source)Anatomical Location / LateralityCollection Method / VolumeCollection TimeReceived TimeBloodVenous blood specimen / Scdebal7303/01/2025 9:15 AM EDT1 Narrative [facility] - 03/02/2025 9:07 AM EDT Performed at: [facility] - [facility] [address], [place], [place] ??[id number] Slope Hoist Operator: Ryder Major MD, Phone: ??[phone] Authorizing ProviderResult TypeResult StatusNadir Mac DOLAB BLOOD ORDERABLES Final ResultPerforming OrganizationAddressCity/State/ZIP CodePhone Number [facility] * Hm Colonoscopy (12/15/2019 1:09 PM EDT)Anatomical RegionLateralityModality Other Narrative Authorizing ProviderResult TypeResult StatusNadir Mac DOHEALTH MAINTENANCE Final Result from Last 3 Months or Most Recently Relevant to Health Maintenance Insurance Care Teams Team MemberRelationshipSpecialtyStart DateEnd Date Nadir Mac DO [address] [place] [address] PCP - [facility]10/10/22 Nadir Mac DO [address] [place] [address] PCP - [facility]09/24/22
--- OUTSIDE RECORDS SUMMARY | 2025-05-10 09:42 | XMS_ITS | Encounter Summary ---
Author Organization [facility] Address [facility] [place] [address] Care Team Providers Care Flight Hostess Name Role Phone Nadir Kenny Domeinc GALVEZ Primary Care Provider [phone] Source Comments In the event this information is protected by the Federal Confidentiality of Alcohol and Drug AbusePatient Records regulations: The Federal rules restrict any use of the information to criminally investigate or prosecute any alcohol or drug abuse patient.[facility] Encounter Details DateTypeDepartmentCare Team (Latest Contact Info)Juxavlnmbau36/19/2025Travel Social History Tobacco UseTypesPacks/DayYears UsedDateSmoking Tobacco: NeverSmokeless [...] steady place to sleep or slept in [facility] (including now)?No03/31/2023Housing Stability Vital SignAnswerDate RecordedIn the last 12 months, was there a time when you were not able to pay the mortgage or rent on time?No03/31/2023Number of Times Moved in the Last Year Not on file03/31/2023Homeless in the Last YearNot on file03/31/2023rea Deprivation IndexAnswerDate RecordedNational Score (1-100), lower number is lower xhdt867504/30/2024State Score (1-10), lower number is lower vjct35707/01/2023 Data from: https://www.neighborhoodatlas.medicine.[facility].edu/. Last address used for [address]CommentsNoSex and Gender InformationValueDate RecordedSex Assigned at BirthNot on fileLegal SexFemale 04/19/2012 9:00 AM ESTGender IdentityNot on fileSexual OrientationNot on file documented as of this encounter Functional Status * Are you deaf or do you have serious difficulty hearing?AnswerDate of QriikoatubPzountGf73/15/2023 9:38 AM Victor Manuel Whitlock RN * Are you blind or do you have serious difficulty seeing, even when wearing glasses?AnswerDate of QtagrxnqjwVlmuypYj72/15/2023 9:38 AM Victor Manuel Whitlock RN * Do you have serious difficulty walking or climbing stairs?AnswerDate of VgqnxpnrziPrzihwDr29/15/2023 9:38 AM Victor Manuel Whitlock RN * Do you have difficulty dressing or bathing?AnswerDate of AssessmentAuthorNo 04/02/2023 9:38 AM Victor Manuel Whitlock RN * Because of a physical, mental, or emotional condition, do you have difficulty doing errands alone such as visiting a doctor's office or shopping?AnswerDate of GjlgcntilqNhidgrWj32/15/2023 9:38 AM Victor Manuel Whitlock RN documented as of this encounter Mental Status * Because of a physical, mental, or emotional condition, do you have serious difficulty concentrating, remembering, or making decisions?AnswerEntry Date DdvqewOm27/15/2023 9:38 AM Victor Manuel Whitlock RN documented in this encounter Plan of Treatment DateTypeDepartmentCare Team (Latest Contact Info)Qiflqjucjpm76/17/2026 11:20 AM EDTOffice Visit [facility]astroenter[facility] [address] [place], [place] [id number] Stan Girard Jr., DO [address] [facility] [address] [place] [address] 1 year Follow-updocumented as of this encounter Visit Diagnoses Not on filedocumented in this encounter Care Teams Team MemberRelationshipSpecialtyStart DateEnd Date Nadir Kenny DO [address] [facility] [address] [place] [address] PCP - GeneralFamily Mldwptac23/13/23documented as of this encounter
--- NOTE | 2025-05-10 09:47 | US_ITS ---
Patient Name: EZEQUIEL NUÑEZ MR#: [id number] : 1955 Exam Date: 05/10/2025 Ordering Doctor: DR ERNST MAC D.O. RADIOLOGY REPORT PROCEDURE: MM TOMOSYNTHESIS DIAGNOSTIC RT, 05/10/2025, 09:43 US BREAST RT LIMITED, 05/10/2025, 10:39 COMPARISON: MM TOMOSYNTHESIS SCREENING BI, 04/15/2025. MG MAMM SCREEN 3D ENRIQUE CAD, 02/01/2021. MG MAMM SCREEN ENRIQUE W CAD, 08/26/2013. MG MAMM SCREEN ENRIQUE W CAD, 09/26/2010. INDICATIONS: Abnormal Mammogram Right Breast Calculator Name NCI Breast Cancer Risk Assessment Tool 5 Year Breast Cancer Risk 3.00% Lifetime Breast Cancer Risk 8.30% Personal Breast Cancer No Personal Ovarian Cancer No Treatments None Family Cancers Sister with breast cancer at age 72; Grandmother-paternal with breast cancer at age 55; Brother with prostate cancer at age 75; Brother with prostate cancer at age 50. LOCATION: [facility] BREAST COMPOSITION: There are scattered areas of fibroglandular density. Previously identified abnormality within the left breast persists on today's study. Ultrasound imaging all the 7 o'clock position of the right breast 3.2 cm from nipple demonstrates a intramammary lymph node. No suspicious mass. FINDINGS: DIAGNOSTIC CATEGORY 2--BENIGN FINDING: RECOMMENDATIONS: ROUTINE MAMMOGRAM AND CLINICAL EVALUATION IN 12 MONTHS. Dictated by: Rey Mitchell DO on 05/10/2025 at 10:58 Approved by: Rey Mitchell DO on 05/10/2025 at 11:01
--- NOTE | 2025-05-10 10:41 | MM_ITS ---
Patient Name: EZEQUIEL NUÑEZ MR#: [id number] : 1955 Exam Date: 05/10/2025 Ordering Doctor: DR ERNST MAC D.O. RADIOLOGY REPORT PROCEDURE: MM TOMOSYNTHESIS DIAGNOSTIC RT, 05/10/2025, 09:43 US BREAST RT LIMITED, 05/10/2025, 10:39 COMPARISON: MM TOMOSYNTHESIS SCREENING BI, 04/15/2025. MG MAMM SCREEN 3D ENRIQUE CAD, 02/01/2021. MG MAMM SCREEN ENRIQUE W CAD, 08/26/2013. MG MAMM SCREEN ENRIQUE W CAD, 09/26/2010. INDICATIONS: Abnormal Mammogram Right Breast Calculator Name NCI Breast Cancer Risk Assessment Tool 5 Year Breast Cancer Risk 3.00% Lifetime Breast Cancer Risk 8.30% Personal Breast Cancer No Personal Ovarian Cancer No Treatments None Family Cancers Sister with breast cancer at age 72; Grandmother-paternal with breast cancer at age 55; Brother with prostate cancer at age 75; Brother with prostate cancer at age 50. LOCATION: [facility] BREAST COMPOSITION: There are scattered areas of fibroglandular density. Previously identified abnormality within the left breast persists on today's study. Ultrasound imaging all the 7 o'clock position of the right breast 3.2 cm from nipple demonstrates a intramammary lymph node. No suspicious mass. FINDINGS: DIAGNOSTIC CATEGORY 2--BENIGN FINDING: RECOMMENDATIONS: ROUTINE MAMMOGRAM AND CLINICAL EVALUATION IN 12 MONTHS. Dictated by: Rey Mitchell DO on 05/10/2025 at 10:58 Approved by: Rey Mitchell DO on 05/10/2025 at 11:01
== END 2025-05-10 09:39 | disposition home or self-care (01) ==
LOC: MAMMO 09:38
PROVIDERS: PCP Family Medicine; Visit Provider Family Medicine
DX: R92.8 Other abnormal and inconclusive findings on diagnostic imaging of breast (principal); Z80.3 Family history of malignant neoplasm of breast; Z80.42 Family history of malignant neoplasm of prostate
CPT/HCPCS: 76642; 77065; G0279